=== PATIENT | male | born 1985 | race Caucasian/White ===

== ENCOUNTER 2017-09-29 17:28 | Emergency (ER) | payer BC, OTHER ==
[~2017-09-29] VITALS: Ht 175.3 cm; Wt 92.9 kg
[~2017-09-29 17:28] MED LIST: CITA40TA12 PO
[2017-09-29 17:30] VITALS: BP 146/95; PULSE 96; TEMP 36.9; O2SAT 100; Ht 175.3 cm; Wt 92.9 kg
--- NOTE | 2017-09-29 22:32 | EMERGENCY ROOM VISIT NOTE ---
History Report prepared by Shanel: Sepideh Kwong Under the Supervision of: Dr. Alex Donovan M.D. First contact with patient: 17:35 Chief Complaint: OTHER COMPLAINT Stated Complaint: HERNIA CHECK History of Present Illness The patient is a 31 year old male who presents to the Emergency Room with complaints of a hernia check beginning yesterday. 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 Yesterday, he states he was lifting some heavy boxes and felt some abdominal soreness, so he decided to come to the ED today for a hernia check. He has never had a hernia check before since his repair. He rates his pain as a 5/10 in severity yesterday and a 2/10 in severity today. Pt denies LOC, headache, fevers, chills, diaphoresis, visual changes, neck pain, chest pain, breathing difficulties, nausea, vomiting, back pain, melena, hematochezia, urinary symptoms, numbness, weakness, lymphadenopathy, rash, bulging, or other complaints. Source of History: patient Onset: yesterday Position: abdomen Symptom Intensity: 5/10 in severity yesterday and a 2/10 in severity today Quality: other (hernia check) Timing: other (after lifting heavy boxes yesterday) Associated Symptoms: + abdominal pain (soreness ) Review of Systems See HPI for pertinent positives and negatives. A total of ten systems were reviewed and were otherwise negative. Past Medical & Surgical Medical Problems: (1) Depression (2) Hernia repair Surgical Problems: (1) [place] teeth extracted Family History Hypertension FATHER Social History Smoking Status: Current Every Day Smoker Alcohol Use: heavy Drug Use: marijuana Marital Status: single Housing Status: lives with significant other Occupation Status: employed Current/Historical Medications Unable to Obtain Active Prescriptions or Reported Meds Allergies Coded Allergies: No Known Allergies (Unverified , 12/15/13) Physical Exam Vital Signs Date Time Temp Pulse Resp B/P (MAP) Pulse Ox O2 Delivery O2 Flow Rate FiO2 09/29/17 17:30 36.9 96 20 146/95 100 Room Air Physical Exam GENERAL: Awake, alert, well-appearing, in no distress HENT: Normocephalic, atraumatic. Oropharynx unremarkable. EYES: Normal conjunctiva. Sclera non-icteric. NECK: Supple. No nuchal rigidity. FROM. No masses. RESPIRATORY: Clear to auscultation. No wheezes. No rales. Normal respiratory effort. CARDIAC: Normal rate. Normal rhythm. No murmurs. No rubs. Extremities warm and well perfused. Pulses equal. No JVD. GI: Soft, non-distended. No tenderness to palpation. No rebound or guarding. No masses. : Normal male. Surgical scar on the right inguinal area. No hernia present. No tenderness. No signs of infection MUSCULOSKELETAL: Atraumatic. Chest examination reveals no tenderness. The back is symmetrical on inspection without obvious abnormality. There is no CVA tenderness to palpation. No joint edema. LOWER EXTREMITIES: Calves are equal size bilaterally and non-tender. No edema. No discoloration. NEURO: Normal sensorium. No sensory or motor deficits noted. SKIN: No rash or jaundice noted. Medical Decision & Procedures ED Course 1741: The patient was evaluated in room B11. A complete history and physical exam was performed. 1800: I reevaluated the patient. Discussed results and discharge instructions: He verbalized understanding and agreement. The patient is ready for discharge. Medical Decision The patient presented to the emergency department for evaluation of right groin pain. Etiologies such as hernia, muscle strain, renal colic, appendicitis, diverticulitis, , UTI, as well as others were entertained. He was concerned about possible hernia. The patient underwent physical examination. He was found to have no hernia. He had a benign abdomen. examination is he was doing a lot of lifting. It is possible that he either strained his previous surgery site or the pulled a muscle in the lower abdominal/groin area. He was already feeling a lot better than yesterday and just wanted to be checked out. He did request a work note. I discussed conservative management with him. Warning signs and symptoms were reviewed. The patient felt comfortable with conservative management. By the evaluation outlined above other emergent etiologies such as those listed in the differential, as well as others, were deemed relatively unlikely. The patient was educated about the findings as listed above. All questions were answered and the patient was pleased with the treatment. Return instructions were outlined and the patient was discharged in stable condition. The patient was referred to his PCP for follow-up for a recheck of the current condition. Medication Reconcilliation Current Medication List: was personally reviewed by me Blood Pressure Screening Patient's blood pressure: Elevated blood pressure Blood pressure disposition: Elevated BP felt to be situational Impression Primary Impression: Right groin pain Scribe Attestation The scribe's documentation has been prepared under my direction and personally reviewed by me in its entirety. I confirm that the note above accurately reflects all work, treatment, procedures, and medical decision making performed by me. Departure Information Dispostion Home / Self-Care Prescriptions Unable to Obtain Active Prescriptions or Reported Meds Referrals No Doctor, Assigned (PCP) Forms HOME CARE DOCUMENTATION FORM, IMPORTANT VISIT INFORMATION, WORK / SCHOOL INSTRUCTIONS Patient Instructions My [facility] Additional Instructions Ibuprofen(Motrin, Advil) may be used for fever or pain. Use 600mg every six hours as needed. Take with food. Avoid using more than 2400mg in a 24 hour period. Do not use 2400mg per day for more than three consecutive days without physician direction. Prolonged inappropriate use can lead to stomach upset or ulcers. (AND/OR) Acetaminophen(Tylenol) may be used for fever or pain. Use 1000mg every six hours as needed. Avoid using more than 4000mg in a 24 hour period. Return to the ER immediately for worsening or persistent abdominal pain, vomiting, fevers, chest pains, difficulty breathing, black or bloody stools, worsening of your condition, or as needed. Follow up with a primary physician for a recheck of your current condition.
== END 2017-09-29 18:00 | disposition home or self-care (01) ==
LOC: C.EDB 17:30
DX: R10.30 Lower abdominal pain, unspecified (principal); X50.0XXA Overexertion from strenuous movement or load, initial encounter; R03.0 Elevated blood-pressure reading, without diagnosis of hypertension; Z98.890 Other specified postprocedural states; F17.200 Nicotine dependence, unspecified, uncomplicated

== ENCOUNTER 2020-11-05 14:00 | Inpatient (IN) ==
[2020-11-05] MEDS ORDERED: MULTI-VITAMIN INFUSION 10 ML, THIAMINE HCL 100 MG, FOLIC ACID 1 MG in SODIUM CHLORIDE 0... IV ONE (14:14)
[2020-11-05] MEDS ORDERED: SODIUM CHLORIDE 0.9% 1000ML 1,000 ML IV ONE (14:14)
[2020-11-05] MEDS ORDERED: DEXAMETHASONE SOD INJ 4 MG/ML VIAL IV STA (14:35)
--- NOTE | 2020-11-05 14:50 | XRay Report ---
XR chest 1V portable HISTORY: 34 years-old Male SEPSIS acute sepsis COMPARISON: Chest radiograph 12/01/2014 TECHNIQUE: Portable AP view the chest FINDINGS: Cardiac mediastinal and hilar silhouettes are within normal limits. No pneumothorax, pleural effusion , airspace consolidation or overt pulmonary edema. No acute fracture. IMPRESSION: No acute process. ACT 112: Negative or not required by law. The above report was generated using voice recognition software. It may contain grammatical, syntax o r spelling errors. Electronically signed by: Chriss Hall M.D. 11/05/2020 2:49 PM
[2020-11-05 15:00] LABS: Basophils # (auto) 0.01 K/uL (0-0.2); Basophils % (auto) 0.2 %; Eosinophils # (auto) 0.05 K/uL (0-0.5); Eosinophils % (auto) 1.1 %; Hematocrit (blood only) 49.5 % (42-52); Hemoglobin 16.9 g/dL (14.0-18.0); Immature Granulocytes # (auto) 0.02 K/uL (0.00-0.02); Immature Granulocytes % (auto) 0.4 %; Lymphocytes # (auto) 2.23 K/uL (1.2-3.4); Lymphocytes % (auto) 47.2 %; Mean Corpuscular Hemoglobin 33.1 pg (25-34); Mean Corpuscular Hgb Conc 34.1 g/dL (32-36); Mean Corpuscular Volume 96.9 fL (80-100); Mean Platelet Volume 9.2 fL (7.4-10.4); Monocytes # (auto) 0.32 K/uL (0.11-0.59); Monocytes % (auto) 6.8 %; Neutrophils # (auto) 2.09 K/uL (1.4-6.5); Neutrophils % (auto) 44.3 %; Platelet Count 259 K/uL (130-400); RDW Coefficient of Variation 13.7 % (11.5-14.5); Red Blood Count 5.11 M/uL (4.7-6.1); White Blood Count 4.72 K/uL (4.8-10.8)
[2020-11-05 15:04] LABS: Base Excess VBG -1.9 mEq/L; pH VBG 7.38 (7.36-7.41)
[2020-11-05 15:10] LABS: Alanine Aminotransferase 302 U/L (12-78); Albumin Level 3.7 gm/dl (3.4-5.0); Aspartate Aminotransferase 236 U/L (15-37); BUN Creatinine Ratio 6.5 (10-20); Blood Urea Nitrogen 6 mg/dl (7-18); Calcium 8.4 mg/dl (8.5-10.1); Carbon Dioxide 22 mmol/L (21-32); Chloride 106 mmol/L (98-107); Creatinine Clr Calc Pharmacy 130.2 ml/min; Est GFR (African American) 119.7 ml/min; Est GFR (Non-African American) 103.3 ml/min; Glucose 87 mg/dl (70-99); Lipase 187 U/L (73-393); Magnesium 2.2 mg/dl (1.8-2.4); Potassium 3.7 mmol/L (3.5-5.1); Sodium 141 mmol/L (136-145)
[2020-11-05 15:14] LABS: Albumin Globulin Ratio 0.9 (0.9-2); Alkaline Phosphatase 80 U/L (45-117); Bilirubin,Total 0.3 mg/dl (0.2-1); Globulin 4.4 gm/dl (2.5-4.0); Partial Thromboplastin Ratio 0.9; Partial Thromboplastin Time 23.7 Seconds (21.0-31.0); Prothrombin Time 9.8 Seconds (9.0-12.0); Total Protein 8.1 gm/dl (6.4-8.2); Troponin I < 0.015 ng/ml (0-0.045)
--- NOTE | 2020-11-05 15:14 | Emergency Department Note ---
History of Present Illness General Chief complaint: Alcohol Intoxication Time Seen by Provider: 11/05/20 14:14 History of Present Illness Provider complaint: Alcohol abuse Covid Onset (ago): week(s) 1 34-year-old male with history of drug and alcohol abuse presents emergency department for drug and alcohol abuse. Patient states he tested positive for Covid on October 30, 6 days ago. Since then he has been quarantining at home. The patient states since he has been at home quarantining he has been drinking lots of alcohol because he has not been feeling good. Patient states he blacked out and does not remember what happened. EMS reported that the patient was found in his apartment surrounded by 3 empty bottles of vodka. Home Medications Medication Instructions Recorded Confirmed Type No Known Home Medications 11/05/20 11/05/20 History Allergies Allergy/AdvReac Type Severity Reaction Status Date / Time No Known Allergies Allergy Verified 11/05/20 21:13 Past Med/Surg History Medical History Alcohol intoxication Depression No pertinent family history Surgical History [place] teeth extracted Social History Smoking Status: Current some day smoker Second Hand Exposure: Yes; Do You Dip or Chew Tobacco: Yes; Tobacco Cessation Education Requested by Patient: No Hx Alcohol Use: Yes Alcohol type: hard liquor Hx Substance Use: Yes Non-Prescribed Medications: Heroin Preferred Language: Cypriot Communication Ability: Effective Charger Operator Required: Yes Beliefs That Will Affect Care: None Current Living Situation: Spouse Other Information That Helps Us Care for You: No Feels Safe at Home: Yes Assistive Devices: None Review of Systems A total of 10 systems reviewed and were otherwise negative Physical Exam Vital Signs Vital Signs - 24 hr 11/05/20 14:05 11/05/20 14:10 11/05/20 14:33 Temperature 36.4 C L Temperature Source Oral Pulse Rate 127 H 134 H Pulse Rate from SpO2 Sensor 125 H 134 H Pulse Rhythm Regular Pulse Strength Normal Respiratory Rate 13 17 Respiratory Effort / Characteristics Non-Labored Spontaneous Respiratory Depth Normal Respiratory Pattern Regular Blood Pressure 146/118 H Blood Pressure Mean 127 Blood Pressure Position Sitting Pulse Oximetry 93 87 L 97 Oxygen Delivery Method Room Air Nasal Cannula Oxygen Flow Rate 0 Sepsis Recent Fever Within 48 Hours No Sepsis New/Unexplained Change in Mental Status No Sepsis Action Taken by Nursing No Action Required Oxygen Flow Rate - Titration 2 Pulse Oximetry Post Tiitration 96 11/05/20 14:40 11/05/20 14:44 11/05/20 14:50 Temperature Temperature Source Pulse Rate 121 H 118 H Pulse Rate from SpO2 Sensor 121 H 118 H Pulse Rhythm Pulse Strength Respiratory Rate 17 25 H Respiratory Effort / Characteristics Non-Labored Spontaneous Respiratory Depth Respiratory Pattern Blood Pressure Blood Pressure Mean Blood Pressure Position Pulse Oximetry 96 96 95 Oxygen Delivery Method Nasal Cannula Oxygen Flow Rate 2 Sepsis Recent Fever Within 48 Hours Sepsis New/Unexplained Change in Mental Status Sepsis Action Taken by Nursing Oxygen Flow Rate - Titration Pulse Oximetry Post Tiitration 11/05/20 15:00 11/05/20 15:14 11/05/20 15:30 Temperature Temperature Source Pulse Rate 114 H 110 H Pulse Rate from SpO2 Sensor 114 H 110 H Pulse Rhythm Pulse Strength Respiratory Rate 24 21 Respiratory Effort / Characteristics Respiratory Depth Respiratory Pattern Blood Pressure 147/101 H 141/93 H Blood Pressure Mean 116 109 Blood Pressure Position Pulse Oximetry 96 95 99 Oxygen Delivery Method Room Air Nasal Cannula Oxygen Flow Rate 2 Sepsis Recent Fever Within 48 Hours Sepsis New/Unexplained Change in Mental Status Sepsis Action Taken by Nursing Oxygen Flow Rate - Titration Pulse Oximetry Post Tiitration 11/05/20 16:01 11/05/20 16:30 11/05/20 16:31 Temperature Temperature Source Pulse Rate 109 H Pulse Rate from SpO2 Sensor 109 H 119 H Pulse Rhythm Pulse Strength Respiratory Rate 23 Respiratory Effort / Characteristics Respiratory Depth Respiratory Pattern Blood Pressure 143/92 H 132/91 Blood Pressure Mean 109 104 Blood Pressure Position Pulse Oximetry 95 99 98 Oxygen Delivery Method Nasal Cannula Nasal Cannula Oxygen Flow Rate 2 2 Sepsis Recent Fever Within 48 Hours Sepsis New/Unexplained Change in Mental Status Sepsis Action Taken by Nursing Oxygen Flow Rate - Titration Pulse Oximetry Post Tiitration Physical Exam GENERAL: Patient is disheveled and smells of alcohol. HENT: Exam performed. - Head: Normocephalic and atraumatic. - Right Ear: External ear normal. No mastoid tenderness. - Left Ear: External ear normal. No mastoid tenderness. - Mouth/Throat: The oropharynx is clear and moist. No trismus in the jaw. No dental abscesses or uvula swelling. No oropharyngeal exudate or tonsillar abscesses. EYES: Conjunctivae and EOM are normal. Pupils are equal, round, and reactive to light. Right eye exhibits no discharge. Left eye exhibits no discharge. No scleral icterus. NECK: Normal range of motion. Neck supple. No JVD present. No spinous process tenderness present. No carotid bruit present. No rigidity. No tracheal deviation and normal range of motion present. No Brudzinski's sign and no Kernig's sign noted. CV: Tachycardic rate, regular rhythm, normal heart sounds and intact distal pulses. There is no peripheral edema. Palpable radial pulses bue. PULM/CHEST: Rhonchi bilaterally. - Chest Wall: He exhibits no tenderness. ABD: The abdomen is soft. Bowel sounds are normal. He has no distension. No mass is present. There is no tenderness. There is no rebound, no guarding, no Broderick's sign and no tenderness at McBurney's point. Rovsig negative. MUSC/SKEL: Normal range of motion. There is no peripheral edema, tenderness or deformity. LYMPH: No cervical adenopathy. NEURO: He is alert and oriented to person, place, and time. He has normal strength. No cranial nerve deficit or sensory deficit. GCS eye subscore is 4. GCS verbal subscore is 4. GCS motor subscore is 6. Cerebellar tests wnl. SKIN: Skin is warm and dry. He is not diaphoretic. PSYCH: Patient reports no suicidal ideation. Course Course 1414: The patient was evaluated in room B10. A complete history and physical exam was performed Cardiac monitoring: An order was placed for continuous cardiac monitoring. The monitor shows a rate of 120 with sinus tachycardia rhythm Patient is disheveled and smells of alcohol. Patient is responsive but is easily falling asleep. Patient's oxygen saturation was 87% on room air. Patient placed on 2 L nasal cannula. Is unclear if the patient's low oxygen saturation is due to his Covid or due to him being intoxicated and having bradychpnea. Patient is given Decadron 6 mg IV push in case it is Covid. 1645: Vital signs stable. Labs show lactic acid greater than 4. She would like to leave A. I explained to him that he has Covid pneumonia and his oxygen saturations were low requiring supplemental oxygen and Decadron. Patient is in agreement to stay. Imaging negative for PE. [facility]00: Patient is again stating that he would like to leave AMA. Patient ripped out his IV and all of his monitors. Explained to him that I would not allow him to leave AMA as he is clinically intoxicated and his serum EtOH is greater than 300. Patient states his girlfriend is on her way to sign him out AMA. 1810: Girlfriend at bedside. Patient block on supplemental oxygen. Girlfriend states that she wants the patient to stay inpatient and refuses to sign him out AMA and convince the patient to be admitted to the hospital. Patient is now in agreement to be admitted. Administered Medications Folic Acid (Folic Acid 1 Mg Tab) 1 mg PO QAM TRESSA Stop: 12/05/20 21:42 Last Admin: 11/05/20 22:12 Dose: 1 mg Documented by: [id number] Potassium Chloride/Dextrose/Sod Cl (D5w And 1/2nss + 20meq Kcl) 20 meq in 1,000 mls @ 100 mls/hr IV .Q10H TRESSA Stop: 12/05/20 21:59 Last Admin: 11/05/20 22:13 Dose: 100 mls/hr Documented by: [id number] Thiamine HCl (Thiamine Hcl 100 Mg Tab) 100 mg PO QAM TRESSA Stop: 12/05/20 21:42 Last Admin: 11/05/20 22:11 Dose: 100 mg Documented by: [id number] Discontinued Medications Dexamethasone (Dexamethasone Sod Inj 4 Mg/Ml Vial) 6 mg IV NOW STA Stop: 11/05/20 14:36 Last Admin: 11/05/20 14:49 Dose: 6 mg Documented by: [id number] Sodium Chloride (Nss 1000ml) 1,000 mls @ 999 mls/hr IV .Q1H1M ONE Stop: 11/05/20 15:14 Last Infusion: 11/05/20 16:14 Dose: 0 mls/hr Documented by: [id number] Admin: 11/05/20 14:50 Dose: 999 mls/hr Documented by: [id number] Multivitamins 10 ml/ Thiamine HCl 100 mg/ Folic Acid 1 mg/Sodium Chloride 1,011.2 mls @ 1,011.2 mls/hr IV .Q1H ONE Stop: 11/05/20 15:13 Last Infusion: 11/05/20 16:14 Dose: 0 mls/hr Documented by: [id number] Admin: 11/05/20 14:50 Dose: 1,011.2 mls/hr Documented by: [id number] Ioversol (Optiray 320 125ml) 120 ml IV ONCE ONE Stop: 11/05/20 15:33 Last Admin: 11/05/20 15:33 Dose: 120 ml Documented by: [id number] Critical Care Time Critical Care Time: Yes Total Critical Care Time: 35 I have personally spent greater than 35 minutes of critical care time in the direct management of this patient. This includes bedside care, interpretation of diagnostic studies, and testing, discussion with consultants, patient, and family members, and other required patient management activities. This 35 minutes is in excess of all separately billable procedures. Medical Decision Making Laboratory Data Result diagrams: 11/05/20 14:35 11/05/20 14:35 Lab Results 11/05/20 11/05/20 11/05/20 Range/Units 14:35 14:35 14:35 WBC 4.72 L (4.8-10.8) K/uL RBC 5.11 (4.7-6.1) M/uL Hgb 16.9 (14.0-18.0) g/dL Hct 49.5 (42-52) % MCV 96.9 (80-100) fL MCH 33.1 (25-34) pg MCHC 34.1 (32-36) g/dL RDW Std Deviation 49.0 H (36.4-46.3) fL RDW Coeff of Bethany 13.7 (11.5-14.5) % Plt Count 259 (130-400) K/uL MPV 9.2 (7.4-10.4) fL Immature Gran % (Auto) 0.4 % Neut % (Auto) 44.3 % Lymph % (Auto) 47.2 % Towner % (Auto) 6.8 % Eos % (Auto) 1.1 % Baso % (Auto) 0.2 % Neut # (Auto) 2.09 (1.4-6.5) K/uL Lymph # (Auto) 2.23 (1.2-3.4) K/uL Towner # (Auto) 0.32 (0.11-0.59) K/uL Eos # (Auto) 0.05 (0-0.5) K/uL Baso # (Auto) 0.01 (0-0.2) K/uL Immature Gran # (Auto) 0.02 (0.00-0.02) K/uL PT 9.8 (9.0-12.0) Seconds INR 1.0 (0.9-1.1) APTT 23.7 (21.0-31.0) Seconds PTT Ratio 0.9 VBG pH (7.36-7.41) VBG pCO2 (38-50) mmHg VBG pO2 mmHg VBG HCO3 mmol/L VBG O2 Saturation % VBG Base Excess mEq/L Barometric Pressure mm/Hg Sodium 141 (136-145) mmol/L Potassium 3.7 (3.5-5.1) mmol/L Chloride 106 (98-107) mmol/L Carbon Dioxide 22 (21-32) mmol/L Anion Gap 14.0 H (3-11) BUN 6 L (7-18) mg/dl Creatinine 0.95 (0.6-1.4) mg/dl Est Cr Clr Drug Dosing 130.2 ml/min Est GFR ( Amer) 119.7 ml/min Est GFR (Non-Af Amer) 103.3 ml/min BUN/Creatinine Ratio 6.5 L (10-20) Glucose 87 (70-99) mg/dl Lactate (0.4-2.0) mmol/L Calcium 8.4 L (8.5-10.1) mg/dl Magnesium 2.2 (1.8-2.4) mg/dl Total Bilirubin 0.3 (0.2-1) mg/dl AST 236 H (15-37) U/L ALT 302 H (12-78) U/L Alkaline Phosphatase 80 (45-117) U/L Troponin I < 0.015 (0-0.045) ng/ml C-Reactive Protein < 0.29 (0-0.29) mg/dl Total Protein 8.1 (6.4-8.2) gm/dl Albumin 3.7 (3.4-5.0) gm/dl Globulin 4.4 H (2.5-4.0) gm/dl Albumin/Globulin Ratio 0.9 (0.9-2) Lipase 187 (73-393) U/L Procalcitonin (0-0.5) ng/ml Salicylates (2.8-20) mg/dl Acetaminophen (10-30) ug/ml Ethyl Alcohol mg/dL (0-3) mg/dl COVID-19 Eval Order SARS-CoV-2 (PCR) (Negative) 11/05/20 11/05/20 11/05/20 Range/Units 14:35 14:35 14:35 WBC (4.8-10.8) K/uL RBC (4.7-6.1) M/uL Hgb (14.0-18.0) g/dL Hct (42-52) % MCV (80-100) fL MCH (25-34) pg MCHC (32-36) g/dL RDW Std Deviation (36.4-46.3) fL RDW Coeff of Bethany (11.5-14.5) % Plt Count (130-400) K/uL MPV (7.4-10.4) fL Immature Gran % (Auto) % Neut % (Auto) % Lymph % (Auto) % Towner % (Auto) % Eos % (Auto) % Baso % (Auto) % Neut # (Auto) (1.4-6.5) K/uL Lymph # (Auto) (1.2-3.4) K/uL Towner # (Auto) (0.11-0.59) K/uL Eos # (Auto) (0-0.5) K/uL Baso # (Auto) (0-0.2) K/uL Immature Gran # (Auto) (0.00-0.02) K/uL PT (9.0-12.0) Seconds INR (0.9-1.1) APTT (21.0-31.0) Seconds PTT Ratio VBG pH (7.36-7.41) VBG pCO2 (38-50) mmHg VBG pO2 mmHg VBG HCO3 mmol/L VBG O2 Saturation % VBG Base Excess mEq/L Barometric Pressure mm/Hg Sodium (136-145) mmol/L Potassium (3.5-5.1) mmol/L Chloride (98-107) mmol/L Carbon Dioxide (21-32) mmol/L Anion Gap (3-11) BUN (7-18) mg/dl Creatinine (0.6-1.4) mg/dl Est Cr Clr Drug Dosing ml/min Est GFR ( Amer) ml/min Est GFR (Non-Af Amer) ml/min BUN/Creatinine Ratio (10-20) Glucose (70-99) mg/dl Lactate 4.2 H* (0.4-2.0) mmol/L Calcium (8.5-10.1) mg/dl Magnesium (1.8-2.4) mg/dl Total Bilirubin (0.2-1) mg/dl AST (15-37) U/L ALT (12-78) U/L Alkaline Phosphatase (45-117) U/L Troponin I (0-0.045) ng/ml C-Reactive Protein (0-0.29) mg/dl Total Protein (6.4-8.2) gm/dl Albumin (3.4-5.0) gm/dl Globulin (2.5-4.0) gm/dl Albumin/Globulin Ratio (0.9-2) Lipase (73-393) U/L Procalcitonin < 0.05 (0-0.5) ng/ml Salicylates < 1.7 L (2.8-20) mg/dl Acetaminophen < 2 L (10-30) ug/ml Ethyl Alcohol mg/dL (0-3) mg/dl COVID-19 Eval Order SARS-CoV-2 (PCR) (Negative) 11/05/20 11/05/20 11/05/20 Range/Units 14:35 14:35 14:44 WBC (4.8-10.8) K/uL RBC (4.7-6.1) M/uL Hgb (14.0-18.0) g/dL Hct (42-52) % MCV (80-100) fL MCH (25-34) pg MCHC (32-36) g/dL RDW Std Deviation (36.4-46.3) fL RDW Coeff of Bethany (11.5-14.5) % Plt Count (130-400) K/uL MPV (7.4-10.4) fL Immature Gran % (Auto) % Neut % (Auto) % Lymph % (Auto) % Towner % (Auto) % Eos % (Auto) % Baso % (Auto) % Neut # (Auto) (1.4-6.5) K/uL Lymph # (Auto) (1.2-3.4) K/uL Towner # (Auto) (0.11-0.59) K/uL Eos # (Auto) (0-0.5) K/uL Baso # (Auto) (0-0.2) K/uL Immature Gran # (Auto) (0.00-0.02) K/uL PT (9.0-12.0) Seconds INR (0.9-1.1) APTT (21.0-31.0) Seconds PTT Ratio VBG pH (7.36-7.41) VBG pCO2 (38-50) mmHg VBG pO2 mmHg VBG HCO3 mmol/L VBG O2 Saturation % VBG Base Excess mEq/L Barometric Pressure mm/Hg Sodium (136-145) mmol/L Potassium (3.5-5.1) mmol/L Chloride (98-107) mmol/L Carbon Dioxide (21-32) mmol/L Anion Gap (3-11) BUN (7-18) mg/dl Creatinine (0.6-1.4) mg/dl Est Cr Clr Drug Dosing ml/min Est GFR ( Amer) ml/min Est GFR (Non-Af Amer) ml/min BUN/Creatinine Ratio (10-20) Glucose (70-99) mg/dl Lactate (0.4-2.0) mmol/L Calcium (8.5-10.1) mg/dl Magnesium (1.8-2.4) mg/dl Total Bilirubin (0.2-1) mg/dl AST (15-37) U/L ALT (12-78) U/L Alkaline Phosphatase (45-117) U/L Troponin I (0-0.045) ng/ml C-Reactive Protein (0-0.29) mg/dl Total Protein (6.4-8.2) gm/dl Albumin (3.4-5.0) gm/dl Globulin (2.5-4.0) gm/dl Albumin/Globulin Ratio (0.9-2) Lipase (73-393) U/L Procalcitonin (0-0.5) ng/ml Salicylates (2.8-20) mg/dl Acetaminophen (10-30) ug/ml Ethyl Alcohol mg/dL 377.0 H (0-3) mg/dl COVID-19 Eval Order Covid19 at [facility] SARS-CoV-2 (PCR) POSITIVE A* (Negative) 11/05/20 11/05/20 Range/Units 14:44 17:00 WBC (4.8-10.8) K/uL RBC (4.7-6.1) M/uL Hgb (14.0-18.0) g/dL Hct (42-52) % MCV (80-100) fL MCH (25-34) pg MCHC (32-36) g/dL RDW Std Deviation (36.4-46.3) fL RDW Coeff of Bethany (11.5-14.5) % Plt Count (130-400) K/uL MPV (7.4-10.4) fL Immature Gran % (Auto) % Neut % (Auto) % Lymph % (Auto) % Towner % (Auto) % Eos % (Auto) % Baso % (Auto) % Neut # (Auto) (1.4-6.5) K/uL Lymph # (Auto) (1.2-3.4) K/uL Towner # (Auto) (0.11-0.59) K/uL Eos # (Auto) (0-0.5) K/uL Baso # (Auto) (0-0.2) K/uL Immature Gran # (Auto) (0.00-0.02) K/uL PT (9.0-12.0) Seconds INR (0.9-1.1) APTT (21.0-31.0) Seconds PTT Ratio VBG pH 7.38 (7.36-7.41) VBG pCO2 40 (38-50) mmHg VBG pO2 56 mmHg VBG HCO3 23 mmol/L VBG O2 Saturation 86.0 % VBG Base Excess -1.9 mEq/L Barometric Pressure 728.9 mm/Hg Sodium (136-145) mmol/L Potassium (3.5-5.1) mmol/L Chloride (98-107) mmol/L Carbon Dioxide (21-32) mmol/L Anion Gap (3-11) BUN (7-18) mg/dl Creatinine (0.6-1.4) mg/dl Est Cr Clr Drug Dosing ml/min Est GFR ( Amer) ml/min Est GFR (Non-Af Amer) ml/min BUN/Creatinine Ratio (10-20) Glucose (70-99) mg/dl Lactate 4.3 H* (0.4-2.0) mmol/L Calcium (8.5-10.1) mg/dl Magnesium (1.8-2.4) mg/dl Total Bilirubin (0.2-1) mg/dl AST (15-37) U/L ALT (12-78) U/L Alkaline Phosphatase (45-117) U/L Troponin I (0-0.045) ng/ml C-Reactive Protein (0-0.29) mg/dl Total Protein (6.4-8.2) gm/dl Albumin (3.4-5.0) gm/dl Globulin (2.5-4.0) gm/dl Albumin/Globulin Ratio (0.9-2) Lipase (73-393) U/L Procalcitonin (0-0.5) ng/ml Salicylates (2.8-20) mg/dl Acetaminophen (10-30) ug/ml Ethyl Alcohol mg/dL (0-3) mg/dl COVID-19 Eval Order SARS-CoV-2 (PCR) (Negative) Imaging Data Radiologist's Impression: Chest X-Ray 11/05/20 14:14 XR chest 1V portable HISTORY: 34 years-old Male SEPSIS acute sepsis COMPARISON: Chest radiograph 12/01/2014 TECHNIQUE: Portable AP view the chest FINDINGS: Cardiac mediastinal and hilar silhouettes are within normal limits. No pneumothorax, pleural effusion, airspace consolidation or overt pulmonary edema. No acute fracture. IMPRESSION: No acute process. ACT 112: Negative or not required by law. The above report was generated using voice recognition software. It may contain grammatical, syntax or spelling errors. Electronically signed by: Chriss Hall M.D. 11/05/2020 2:[address] 11/05/20 15:16 CT cervical spine wo con CLINICAL HISTORY: 34 years-old Male with etoh found down covid. Acute posttraumatic neck injury COMPARISON: Head CT of same day, CT cervical spine 08/18/2012 TECHNIQUE: Multiple axial CT images of the cervical spine were obtained without contrast. A dose lowering technique was utilized adhering to the principles of ALARA. FINDINGS: Vertebral body heights and alignment are normal. No fracture or subluxation is identified. The intervertebral disc spaces are preserved. Mild multilevel facet arthrosis. Mild uncovertebral spurring at C3-C4. Mild superior endplate compression deformity of the C6 and C7 segments is new/progressed from comparison. No acute fracture line identified. No significant central canal or n eural foraminal stenosis is identified. The cervical soft tissues appear unremarkable. The visualized lung apices appear clear. IMPRESSION: 1. No definite acute fracture or subluxation identified. 2. Minimal superior endplate compression of the C6 and C7 vertebral segments is new/progressed from the 2013 comparison and may represent age-indeterminate fractures versus degenerative change. No associated prevertebral edema identified. Correlate with point tenderness. 3. Mild multilevel facet arthrosis. ACT 112: Negative or not required by law. The above report was generated using voice recognition software. It may contain grammatical, syntax or spelling errors. Electronically signed by: Chriss Hall M.D. 11/05/2020 4:01 PM Chest CTA 11/05/20 15:16 CHEST CTA for PULMONARY ARTERIES CT DOSE: 501.24 mGycm HISTORY: etoh found down covid TECHNIQUE: Multiaxial CT images of the chest were performed following the intravenous administration of contrast to evaluate the pulmonary arteries. Maximal intensity projection images were also obtained. A dose lowering techn ique was utilized adhering to the principles of ALARA. COMPARISON STUDY: None. FINDINGS: Severe hepatic steatosis. Mild thickening within the distal esophagus. No pleural or pericardial effusions. The heart is normal in size. No mediastinal or hilar lymphadenopathy. Normal caliber thoracic aorta with no evidence for a dissection. No filling defects within the pulmonary arteries to suggest a pulmonary embolus. No pneumothorax. The central airways are patent. A few scattered small groundglass airspace opacities consistent with a mild viral pneu monia. IMPRESSION: 1. No evidence for pulmonary embolus. 2. A few scattered small groundglass airspace opacities within the lungs consi stent with a mild viral pneumonia. 3. Severe hepatic steatosis. 4. Mild circumferential thickening of the distal esophagus. ACT 112: Negative or not required by law. Electronically signed by: Myron Mark M.D. 11/05/2020 4:[address] 11/05/20 15:[address] DOSE: 1700.96 mGycm HISTORY: etoh found down covid TECHNIQUE: Multiaxial CT images of the head were performed without the use of intravenous contrast. Automated exposure control was utilized for this study. A dose lowering technique was utilized adhering to the principles of ALARA. Comparison: Head CT 08/18/2012. Findings: The paranasal sinuses and mastoid air cells are clear. The calvarium and skull base are intact. The ventricles and sulci are within normal limits. There is no mass, hematoma, midline shift, or acute infarct. Impression: No acute intracranial abnormality. ACT 112: Negative or not required by law. Electronically signed by: Myron Mark M.D. 11/05/2020 3:57 PM ECG Data Indication: + toxicologic Rate (beats per minute): 115 Rhythm: + sinus tachycardia ECG Intervals/blocks: + Normal QRS, + Normal ND and + Normal QT-c ECG ST segments: + Normal ST segments [facility] Narrative 1414: The patient was evaluated in room B10. A complete history and physical exam was performed Cardiac monitoring: An order was placed for continuous cardiac monitoring. The monitor shows a rate of 120 with sinus tachycardia rhythm Patient is disheveled and smells of alcohol. Patient is responsive but is easily falling asleep. Patient's oxygen saturation was 87% on room air. Patient placed on 2 L nasal cannula. Is unclear if the patient's low oxygen saturation is due to his Covid or due to him being intoxicated and having bradychpnea. Patient is given Decadron 6 mg IV push in case it is Covid. 1645: Vital signs stable. Labs show lactic acid greater than 4. She would like to leave AMA. I explained to him that he has Covid pneumonia and his oxygen saturations were low requiring supplemental oxygen and Decadron. Patient is in agreement to stay. Imaging negative for PE. [facility] 1700: Patient is again stating that he would like to leave AMA. Patient ripped out his IV and all of his monitors. Explained to him that I would not allow him to leave AMA as he is clinically intoxicated and his serum EtOH is greater than 300. Patient states his girlfriend is on her way to sign him out AMA. 1810: Girlfriend at bedside. Patient block on supplemental oxygen. Girlfriend states that she wants the patient to stay inpatient and refuses to sign him out AMA and convince the patient to be admitted to the hospital. Patient is now in agreement to be admitted. Impression & Plan Hypoxia, Pneumonia due to COVID-19 virus, Alcohol intoxication Discharge Plan Visit Data Chief Complaint: Alcohol Intoxication ED Provider: Ventura Conrad Discharge Problem: Hypoxia, Pneumonia due to COVID-19 virus, Alcohol intoxication Patient Disposition: Admitted As Inpatient Discharge Instructions Interventions: ED Discharge Assessment Last Done: 11/05/20 21:03
[2020-11-05 15:31] LABS: Acetaminophen < 2 ug/ml (10-30); Salicylate < 1.7 mg/dl (2.8-20)
[2020-11-05] MEDS ORDERED: OPTIRAY 320 125ml IV ONE (15:32)
--- NOTE | 2020-11-05 15:59 | CT Scan Report ---
HEAD CT NONCONTRAST CT DOSE: 1700.96 mGycm HISTORY: etoh found down covid TECHNIQUE: Multiaxial CT images of the head were performed without the use of intravenous contrast. A utomated exposure control was utilized for this study. A dose lowering technique was utilized adheri ng to the principles of ALARA. Comparison: Head CT 08/18/2012. Findings: The paranasal sinuses and mastoid air cells are clear. The calvarium and skull base are int act. The ventricles and sulci are within normal limits. There is no mass, hematoma, midline shift, or acute infarct. Impression: No acute intracranial abnormality. ACT 112: Negative or not required by law. Electronically signed by: Myron Mrak M.D. 11/05/2020 3:57 PM
--- NOTE | 2020-11-05 16:03 | CT Scan Report ---
CT cervical spine wo con CLINICAL HISTORY: 34 years-old Male with etoh found down covid. Acute posttraumatic neck injury COMPARISON: Head CT of same day, CT cervical spine 08/18/2012 TECHNIQUE: Multiple axial CT images of the cervical spine were obtained without contrast. A dose low ering technique was utilized adhering to the principles of ALARA. FINDINGS: Vertebral body heights and alignment are normal. No fracture or subluxation is identified. The intervertebral disc spaces are preserved. Mild multilevel facet arthrosis. Mild uncovertebral s purring at C3-C4. Mild superior endplate compression deformity of the C6 and C7 segments is new/progr essed from comparison. No acute fracture line identified. No significant central canal or neural fora haley stenosis is identified. The cervical soft tissues appear unremarkable. The visualized lung apices appear clear. IMPRESSION: 1. No definite acute fracture or subluxation identified. 2. Minimal superior endplate compression of the C6 and C7 vertebral segments is new/progressed from 2012 comparison and may represent age-indeterminate fractures versus degenerative change. No assoc iated prevertebral edema identified. Correlate with point tenderness. 3. Mild multilevel facet arthrosis. ACT 112: Negative or not required by law. The above report was generated using voice recognition software. It may contain grammatical, syntax o r spelling errors. Electronically signed by: Chriss Hall M.D. 11/05/2020 4:01 PM
--- NOTE | 2020-11-05 16:04 | CT Scan Report ---
CHEST CTA for PULMONARY ARTERIES CT DOSE: 501.24 mGycm HISTORY: etoh found down covid TECHNIQUE: Multiaxial CT images of the chest were performed following the intravenous administration of contrast to evaluate the pulmonary arteries. Maximal intensity projection images were also obtaine d. A dose lowering technique was utilized adhering to the principles of ALARA. COMPARISON STUDY: None. FINDINGS: Severe hepatic steatosis. Mild thickening within the distal esophagus. No pleural or perica rdial effusions. The heart is normal in size. No mediastinal or hilar lymphadenopathy. Normal caliber thoracic aorta with no evidence for a dissection. No filling defects within the pulmonary arteries t o suggest a pulmonary embolus. No pneumothorax. The central airways are patent. A few scattered small groundglass airspace opacities consistent with a mild viral pneumonia. IMPRESSION: 1. No evidence for pulmonary embolus. 2. A few scattered small groundglass airspace opacities within the lungs consistent with a mild viral pneumonia. 3. Severe hepatic steatosis. 4. Mild circumferential thickening of the distal esophagus. ACT 112: Negative or not required by law. Electronically signed by: Myron Mark M.D. 11/05/2020 4:03 PM
--- NOTE | 2020-11-05 17:15 | History & Physical Report ---
Date of Service November 05, 2020 Assessment & Plan (1) Pneumonia due to COVID-19 virus: Plan: Maintaining O2 sats while awake. Dexamethasone 6mg IV given in ER due to O2 sats 87% on room air while asleep. Will defer further dexamethasone as patient is clinically improving, no hypoxia on room air at rest while awake and CRP negative. (2) Lactic acidosis: Plan: Elevated lactate without acidemia. Suspect from alcohol use and reduced lactate elimination. Sepsis not suspected. Should resolve with alcohol cessation and IV fluids (although will not be overly agressive with this due to COVID diagnosis). (3) Alcohol intoxication: Plan: Monitor for alcohol withdrawal. AWSS. Ativan 1mg IV PRN for scores 6-10. Mild prior symptoms. (4) Altered mental status: Plan: Given high alcohol level although this is the main reason for his presentation he appears to be mentating well at the current time. (5) Transaminitis: Plan: Suspect combination of COVID-19 and most likely alcohol intake. Hepatic steotosis on CT. Recommend abstinence from alcohol and PCP follow up. Plan: VTE Prophylaxis - lovenox 40mg SQ QAM Diet - regular Disposition - admit to med/surg Admission and Anticipated Discharge Date Admission Date: November 05, 2020 History of Present Illness Chief Complaint: COVID-19 symptoms Primary Care Provider: NO PCP Chino Sanches is a 34 year old male with alcoholism who presents to the ER after his girlfriend called the ambulance due to the patient losing consciousness. He has known COVID-19 pneumonia. He is not vaccinated. Currently on day 9 of illness. He feels he is getting better from a COVID stand point however. Mainly now just has generalized myalgias, non-productive cough, fat igue, diarrhea, loss of taste and smell with reduced appetite. He is no longer having fever, chills or significant shortness of breath at rest. However he has known alcohol use disorder but had been having significant periods of abstention but drank 1.5 bottles of vodka yesterday up until around 5 hours ago (notably EMS found 3 empty bottles of vodka. His girlfriend couldn't wake him up therefore called for an ambulance today. He reports going back to drinking after abstaining for the last 4 weeks prior to this. He went back to drinking to numb the effects of COVID. 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 In the ER he was noted to be mildly hypoxic when sleeping therefore was given dexamethasone 6mg IV and referred to medicine for ongoing management for COVID- 19 pneumonia and hypoxia. Lactic acid was 4.2, AST 236, ALT 302. He tried to sign out against medical advice on multiple occasions however his girlfriend is unwilling to give him a lift home at the current time therefore is now willing to stay. Allergies Allergy/AdvReac Type Severity Reaction Status Date / Time No Known Allergies Allergy Verified 11/05/20 21:13 Home Medications Medication Instructions Recorded Confirmed Type No Known Home Medications 11/05/20 11/05/20 History Past Med/Surg History Medical History Alcohol intoxication Depression No pertinent family history Surgical History Sargeant teeth extracted Social History Smoking Status: Current some day smoker Second Hand Exposure: Yes; Do You Dip or Chew Tobacco: Yes; Tobacco Cessation Education Requested by Patient: No Hx Alcohol Use: Yes Alcohol type: hard liquor Hx Substance Use: Yes Non-Prescribed Medications: Heroin Preferred Language: Irish Communication Ability: Effective Fur Cleaner Required: Yes Beliefs That Will Affect Care: None Current Living Situation: Spouse Other Information That Helps Us Care for You: No Feels Safe at Home: Yes Assistive Devices: Oxygen - Continuous Review of Systems Review of Systems: All systems reviewed & are unremarkable except as noted in HPI & below Physical Exam Constitutional: WD/WN, vitals as above Eyes: PERRL, conjunctivae normal, anicteric sclerae ENMT: external ear and nose normal, oropharynx normal Neck: trachea midline, no thyromegaly Respiratory: normal respiratory effort; no respiratory distress Auscultation: + crackles (fine posteriorly); no diminished lung sounds, no rales and no wheezes Cardiovascular: RRR, no murmur, no edema Gastrointestinal (Abdomen): normal bowel sounds, soft, nontender, no hepatosplenomegaly Musculoskeletal: no cyanosis or clubbing, extremities motor strength 5/5 Skin: no rashes, warm and dry Neurologic: moves all extremities and awake; no focal motor deficits and not confused Speech / Cognition: normal speech Cranial Nerves: PERRL Psychiatric: A+Ox3, euthymic affect Results & Data Results & Data ([facility]) Vital Signs (Past 12 Hours) Vital Signs Temp Pulse Resp BP Pulse Ox 11/05/20 16:31 98 11/05/20 16:30 132/91 99 11/05/20 16:01 109 H 23 143/92 H 95 11/05/20 15:30 110 H 21 141/93 H 99 11/05/20 15:14 95 11/05/20 15:00 114 H 24 147/101 H 96 11/05/20 14:50 118 H 25 H 95 11/05/20 14:40 121 H 17 96 11/05/20 14:33 134 H 17 97 11/05/20 14:10 87 L 11/05/20 14:05 36.4 C L 127 H 13 146/118 H [address] NONCONTRAST CT DOSE: 1700.96 mGycm HISTORY: etoh found down covid TECHNIQUE: Multiaxial CT images of the head were performed without the use of intravenous contrast. Automated exposure control was utilized for this study. A dose lowering technique was utilized adhering to the principles of ALARA. Comparison: Head CT 08/18/2012. Findings: The paranasal sinuses and mastoid air cells are clear. The calvarium and skull base are intact. The ventricles and sulci are within normal limits. There is no mass, hematoma, midline shift, or acute infarct. Impression: No acute intracranial abnormality. CT cervical spine wo con CLINICAL HISTORY: 34 years-old Male with etoh found down covid. Acute posttraumatic neck injury COMPARISON: Head CT of same day, CT cervical spine 08/18/2012 TECHNIQUE: Multiple axial CT images of the cervical spine were obtained without contrast. A dose lowering technique was utilized adhering to the principles of ALARA. FINDINGS: Vertebral body heights and alignment are normal. No fracture or subluxation is identified. The intervertebral disc spaces are preserved. Mild multilevel facet arthrosis. Mild uncovertebral spurring at C3-C4. Mild superior endplate compression deformity of the C6 and C7 segments is new/progressed from comparison. No acute fracture line identified. No significant central canal or neural foraminal stenosis is identified. The cervical soft tissues appear unremarkable. The visualized lung apices appear clear. IMPRESSION: 1. No definite acute fracture or subluxation identified. 2. Minimal superior endplate compression of the C6 and C7 vertebral segments is new/progressed from the 2013 comparison and may represent age-indeterminate fractures versus degenerative change. No associated prevertebral edema identified. Correlate with point tenderness. 3. Mild multilevel facet arthrosis. CHEST CTA for PULMONARY ARTERIES CT DOSE: 501.24 mGycm HISTORY: etoh found down covid TECHNIQUE: Multiaxial CT images of the chest were performed following the intravenous administration of contrast to evaluate the pulmonary arteries. Maximal intensity projection images were also obtained. A dose lowering technique was utilized adhering to the principles of ALARA. COMPARISON STUDY: None. FINDINGS: Severe hepatic steatosis. Mild thickening within the distal esophagus. No pleural or pericardial effusions. The heart is normal in size. No mediastinal or hilar lymphadenopathy. Normal caliber thoracic aorta with no evidence for a dissection. No filling defects within the pulmonary arteries to suggest a pulmonary embolus. No pneumothorax. The central airways are patent. A few scattered small groundglass airspace opacities consistent with a mild viral pneumonia. IMPRESSION: 1. No evidence for pulmonary embolus. 2. A few scattered small groundglass airspace opacities within the lungs consistent with a mild viral pneumonia. 3. Severe hepatic steatosis. 4. Mild circumferential thickening of the distal esophagus. XR chest 1V portable HISTORY: 34 years-old Male SEPSIS acute sepsis COMPARISON: Chest radiograph 12/01/2014 TECHNIQUE: Portable AP view the chest FINDINGS: Cardiac mediastinal and hilar silhouettes are within normal limits. No pneumothorax, pleural effusion, airspace consolidation or overt pulmonary edema. No acute fracture. IMPRESSION: No acute process. Medications Administered ER Medications Given: NSS 1L bolus Banana Bag Dexamethasone 6mg IV ECG Indication: SOB/dyspnea Rate (beats per minute): 115 Rhythm: sinus tachycardia Findings: no acute ischemic change Comparison ECG Date: from (Feb 26, 2020) Change: no significant change Code Status & VTE Plan Code Status Full VTE Prophylaxis Plan VTE Prophylaxis will be ordered: Yes PG Care Time/CCT Total # of Minutes Spent Total Time Spent with Patient: Total time spent is greater than 50% in coordination of care (as documented) at patient's floor/unit and/or counseling patient: Coding Level of Care Code 24338 Initial Inpt Care Lvl 3 Diagnoses Lactic acidosis E87.2 Altered mental status R41.82 Alcohol intoxication F10.929 Pneumonia due to COVID-19 virus U07.1; J12.82 Transaminitis R74.01
[2020-11-05 20:34] LABS: C Reactive Protein < 0.29 mg/dl (0-0.29)
[2020-11-05] MEDS ORDERED: POLYETHYLENE (MIRALAX) 17 GM PACK PO PRN (21:43)
[2020-11-05] MEDS ORDERED: ALUMINUM/MAGNESIUM SUSP 30 ML UDC PO PRN (21:43)
[2020-11-05] MEDS ORDERED: ONDANSETRON INJ 2 MG/ML 2 ML VIAL IV PRN (21:43)
[2020-11-05] MEDS ORDERED: ACETAMINOPHEN 325 MG TAB PO PRN (21:43)
[2020-11-05] MEDS: THIAMINE HCL 100 MG TAB PO SCH (22:11)
[2020-11-05] MEDS: FOLIC ACID 1 MG TAB PO SCH (22:12)
[2020-11-05] MEDS: D5W AND 1/2NSS + 20MEQ KCL 20 MEQ/1,000 ML BAG IV SCH (22:13)
[2020-11-05] MEDS: LORazepam 1 MG/2 ML VIAL IV PRN (22:46)
[2020-11-06 03:00] LABS: Appearance Urine Clear (Clear); Bacteria Urine Automated Negative (Negative); Bilirubin Urine Negative (Negative); Blood Urine Negative (Negative); Cast Urine Automated 0 /lpf (0-5); Color Urine Dark Yellow; Epithelial Cell Urine Auto 0-5 /lpf (0-5); Glucose Urine UA 2+ (Negative); Ketones Urine 3+ (Negative); Leukocyte Esterase Urine Negative (Negative); Nitrite Urine Negative (Negative); Protein Urine Trace (Negative); RBC Urine Automated 0-4 /hpf (0-4); Specific Gravity Urine 1.041 (1.000-1.030); Urobilinogen Urine Negative (Negative); pH Urine 5.5 (4.5-7.5)
[2020-11-06 03:13] LABS: Amphetamines+Metham, Urine Neg (Neg); Barbiturates, Urine Neg (Neg); Benzodiazepine, Urine Neg (Neg); Cocaine, Urine Neg (Neg); MDMA (Ecstacy), Urine Neg (Neg); Methadone, Urine Neg (Neg); Opiate, Urine Neg (Neg); Phencyclidine, Urine Neg (Neg)
[2020-11-06] MEDS: D5W AND 1/2NSS + 20MEQ KCL 20 MEQ/1,000 ML BAG IV SCH (08:14)
[2020-11-06] MEDS: THIAMINE HCL 100 MG TAB PO SCH (08:29)
[2020-11-06] MEDS: FOLIC ACID 1 MG TAB PO SCH (08:29)
[2020-11-06 08:33] LABS: Hematocrit (blood only) 41.8 % (42-52); Hemoglobin 14.4 g/dL (14.0-18.0); Immature Granulocytes # (auto) 0.02 K/uL (0.00-0.02); Immature Granulocytes % (auto) 0.4 %; Lymphocytes # (auto) 1.07 K/uL (1.2-3.4); Lymphocytes % (auto) 22.1 %; Mean Corpuscular Hemoglobin 32.8 pg (25-34); Mean Corpuscular Hgb Conc 34.4 g/dL (32-36); Mean Corpuscular Volume 95.2 fL (80-100); Monocytes % (auto) 10.3 %; Neutrophils # (auto) 3.26 K/uL (1.4-6.5); Neutrophils % (auto) 67.2 %; Platelet Count 236 K/uL (130-400); RDW Coefficient of Variation 13.3 % (11.5-14.5); RDW Standard Deviation 46.7 fL (36.4-46.3); Red Blood Count 4.39 M/uL (4.7-6.1); White Blood Count 4.85 K/uL (4.8-10.8)
[2020-11-06] MEDS: LORazepam 1 MG/2 ML VIAL IV PRN (08:34)
[2020-11-06] MEDS ORDERED: ENOXAPARIN INJ 40 MG/0.4 ML SYR SQ SCH (09:00)
[2020-11-06 09:11] LABS: Albumin Level 3.4 gm/dl (3.4-5.0); BUN Creatinine Ratio 8.8 (10-20); Calcium 8.8 mg/dl (8.5-10.1); Creatinine Clr Calc Pharmacy 150.5 ml/min; Est GFR (African American) 132.8 ml/min; Est GFR (Non-African American) 114.6 ml/min; Potassium 3.8 mmol/L (3.5-5.1)
[2020-11-06 09:14] LABS: Albumin Globulin Ratio 0.9 (0.9-2); Bilirubin,Total 0.6 mg/dl (0.2-1); Globulin 3.8 gm/dl (2.5-4.0); Total Protein 7.2 gm/dl (6.4-8.2)
[2020-11-06 10:57] VITALS: BP 150/107; TEMP 97.9; O2SAT 100
--- NOTE | 2020-11-06 14:27 | Discharge Summary ---
Date of Service November 06, 2020 Admission HPI Per Admitting Provider Chino Sanches is a 34 year old male with alcoholism who presents to the ER after his girlfriend called the ambulance due to the patient losing consciousness. He has known COVID-19 pneumonia. He is not vaccinated. Currently on day 9 of illness. He feels he is getting better from a COVID stand point however. Mainly now just has generalized myalgias, non-productive cough, fatigue, diarrhea, loss of taste and smell with reduced appetite. He is no longer having fever, chills or significant shortness of breath at rest. However he has known alcohol use disorder but had been having significant periods of abstention but drank 1.5 bottles of vodka yesterday up until around 5 hours ago (notably EMS found 3 empty bottles of vodka. His girlfriend couldn't wake him up therefore called for an ambulance today. He reports going back to drinking after abstaining for the last 4 weeks prior to this. He went back to drinking to numb the effects of COVID. 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 In the ER he was noted to be mildly hypoxic when sleeping therefore was given dexamethasone 6mg IV and referred to medicine for ongoing management for COVID- 19 pneumonia and hypoxia. Lactic acid was 4.2, AST 236, ALT 302. He tried to sign out against medical advice on multiple occasions however his girlfriend is unwilling to give him a lift home at the current time therefore is now willing to stay. Principal Diagnosis COVID 19 infection, mild pneumonia Transient hypoxia Alcohol abuse, intoxication Discharge Exam General: well developed, well nourished, no acute distress, comfortable Neck: supple, trachea midline, normal thyroid Lungs: clear to auscultation bilaterally, normal respiratory effort, no accessory muscle use, no distress Heart: regular S1 and S2, no murmur, peripheral pulses normal, capillary refill normal, no edema Abdomen: soft, NT, ND, + BS, no hepatomegaly, normal to percussion Extremities: normal in appearance, no cyanosis, no petechiae, strength is 5/5 bilaterally Neuro: awake, cooperative, moves all extremities, no focal motor deficits, CN II-XII intact, sensation in extremities intact, normal speech Skin: warm, dry, no rash, normal turgor Psych: Awake, alert oriented x 3, euthymic affect Discharge Data Allergies Allergy/AdvReac Type Severity Reaction Status Date / Time No Known Allergies Allergy Verified 11/05/20 21:13 Consultations 11/05/20 16:25 ED Decision to Admit Stat Ordered Studies 11/05/20 15:16 CT angio chest PE protocol Stat CT cervical spine wo con Stat CT head/brain wo con Stat Hospital Course (1) Pneumonia due to COVID-19 virus: Maintaining O2 sats while awake today he is 100% on room air, no distress or tachypnea, minimal coughing CT chest showed very mild changes, certainly no evidence of severe disease suspect his hypoxia yesterday was due to alcohol intoxication, decreased respiratory drive patient will be discharged to home instructed to stay well hydrated, well nourished, well rested avoid all alcohol advised to monitor his shortness of breath, if he feels short of breath he can check pulse ox, come back to ED if saturations < 89% patient feels comfortable going home, feels like he is getting better, eating and drinking well today (2) Lactic acidosis: Elevated lactate without acidemia. Suspect from alcohol use and reduced lactate elimination. Sepsis not suspected. 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 Hepatic steotosis on CT recommend stopping all alcohol VTE Prophylaxis - lovenox 40mg SQ QAM Diet - regular Disposition - discharge to home Total Time Total Time Spent Total Time Spent (In Minutes): 32 Total Time Includes: Examination of the Patient, Discharge Planning and Medication Reconciliation Discharge Plan Discharge Items Patient Disposition: Home - Self-Care Reason For Visit: COVID 19 Discharge Diagnosis: COVID 19 infection Transient hypoxia due to alcohol intoxication Condition on Discharge: Good Goals: stay well nourished, well hydrated, well rested avoid all alcohol connect with support services for alcohol rehab, abstinence Activity: Resume your previous activity Driving/Machine Use: No limitations Weightbearing: Full weightbearing Non-emergency contact: Primary Care Provider Call non-emergency contact if: you have any medication questions Follow-up/Referrals: PCP,NO [Primary Care Provider] - Diet: Regular Addtl Attending Provider Instructions: COVID 19 infection: suspect you have had COVID for over a week since that is when symptoms began CT of the chest shows minimal changes, very mild pneumonia at best, no evidence of blood clot you are 100% on room air, thus no need to keep you in the hospital and no need for dexamethasone (steroid) your low oxygen levels yesterday were due to alcohol intoxication, altered mental status and hypoventilation now that you are sober and alert your breathing is fine likely through the worst of the infection stay well nourished and well hydrated and get a lot of rest *AVOID ALL ALCOHOL as this could put you at risk of further deterioration, vomiting, aspiration you can take vitamin supplements for immune health such as Vitamin D, Vitamin C and Zinc rodriguez symptom to monitor is shortness of breath, if you feel like your breathing is getting worse you can check finger pulse oximeter (you can purchase this at pharmacy) if saturations are less than 89% on room air then return to emergency department Alcohol abuse: recommend using resources, support groups, family support Pending Studies at Discharge: No Stand-Alone Forms: My [employer], Smoking Cessation Medications and DC Order Prescriptions: No Action No Known Home Medications RF: 0 Discharge Orders: Discharge Order (Routine); Ordered 11/06/20 Ordered By: Luis F Wall Admission Data Admit Date/Time: 11/05/20 17:37 Attending Provider: Luis F Wall Admit Provider: Ervin Centeno Primary Care Provider: PCP,NO Other Providers: Ervin Centeno Coding Level of Care Code D/C DAY MANAGEMENT >30 MINS Diagnoses Pneumonia due to COVID-19 virus U07.1; J12.82 Lactic acidosis E87.2 Alcohol intoxication F10.929 Complication of substance-induced condition: with unspecified complication Altered mental status R41.82 Transaminitis R74.01
[2020-11-06 15:03] VITALS: PULSE 97
--- NOTE | 2020-11-07 06:08 | Electrocardiogram Report ---
Test Reason : Blood Pressure : / mmHG Vent. Rate : 115 BPM Atrial Rate : 115 BPM P-R Int : 140 ms QRS Dur : 082 ms QT Int : 346 ms P-R-T Axes : 031 039 016 degrees QTc Int : 478 ms Sinus tachycardia Poor R wave progression, consider anterior DE vs. lead placement vs. LVH Abnormal ECG When compared with ECG of 26-FEB-2020 16:40, No significant change was found Confirmed by Franklyn Simmons ([id number]) on 11/07/2020 6:07:32 AM Referred By: Confirmed By:Franklyn Simmons
== END 2020-11-06 15:39 | disposition home or self-care (01) | DRG 177 ==
LOC: ED 14:00 → SUATTDRO 17:37 → 2S 17:37
DX: Z51.81 Encounter for therapeutic drug level monitoring; K76.0 Fatty (change of) liver, not elsewhere classified; R09.02 Hypoxemia; F10.129 Alcohol abuse with intoxication, unspecified; U07.1 COVID-19; F17.200 Nicotine dependence, unspecified, uncomplicated; J12.82 Pneumonia due to coronavirus disease 2019; Y90.9 Presence of alcohol in blood, level not specified; E87.2 Acidosis

== ENCOUNTER 2022-02-17 17:51 | Inpatient (IN) ==
[2022-02-17] MEDS ORDERED: SODIUM CHLORIDE 0.9% 1000ML 1,000 ML IV ONE (18:33)
[2022-02-17] MEDS ORDERED: LORazepam 2 MG/1 ML VIAL IV STA (19:20)
[2022-02-17] MEDS ORDERED: MULTI-VITAMIN INFUSION 10 ML, THIAMINE HCL 100 MG, FOLIC ACID 1 MG in SODIUM CHLORIDE 0... IV ONE (19:20)
[2022-02-17] MEDS ORDERED: PANTOprazole 80 MG in DEXTROSE 5% 100 ML IV STA (19:20)
[2022-02-17 19:21] LABS: Hematocrit (blood only) 48.1 % (40.1-51.0); Hemoglobin 16.5 g/dl (14.0-18.0); Mean Corpuscular Hemoglobin 30.6 pg (25.0-34.0); Mean Corpuscular Hgb Conc 34.3 g/dL (32.0-36.0); Mean Corpuscular Volume 89.1 fL (80.0-100.0); Mean Platelet Volume 8.8 fL (9.4-12.4); Platelet Count 418 K/uL (130-400); RDW Coefficient of Variation 13.2 % (11.5-14.5); RDW Standard Deviation 43.5 fL (36.4-46.3)
[2022-02-17 19:29] LABS: Appearance Urine Clear (Clear); Bacteria Urine Automated Negative (Negative); Bilirubin Urine Negative (Negative); Blood Urine Trace (Negative); Color Urine Yellow; Glucose Urine UA Negative (Negative); Ketones Urine Negative (Negative); Leukocyte Esterase Urine Negative (Negative); Nitrite Urine Negative (Negative); Protein Urine Negative (Negative); RBC Urine Automated 0-4 /hpf (0-4); Specific Gravity Urine 1.006 (1.000-1.030); Urobilinogen Urine Negative (Negative)
--- NOTE | 2022-02-17 19:32 | Emergency Department Note ---
Impression & Plan Alcoholic intoxication, Alcohol withdrawal syndrome, Hematemesis ED Provider Note Provider: Asad Anna MD DATE OF SERVICE: 02/12/2022 CHIEF COMPLAINT: Alcohol use/withdrawal HISTORY OF PRESENT ILLNESS: Patient is a 36-year-old gentleman history of prior heroin and alcohol abuse presenting here today with his fiance reporting over the past approximately week he is fallen off the wagon has begun drinking again. Has not used narcotics in about 2 years. States heavy drinking of alcohol and vodka over the past week or so over the last several days having intermittent nausea and vomiting with some blood in it. Denies bloody stools or significant black stools. Denies heartburn or abdominal pain at this time. Did fall about 4 days ago and struck his head without loss of consciousness but currently denies any headache. Had some alcohol prior to coming in. Reports a history of multiple rehab stays in the past and significant withdrawal symptoms including hallucinations. Does not report a history of seizures. Has been very depressed given his relapse. PAST MEDICAL HISTORY: As noted above MEDICATIONS: Denies current SOCIAL HISTORY: Recent heavy alcohol use, engaged, recently laid off PHYSICAL EXAM: GENERAL: alert and oriented appears somewhat anxious on the stretcher Head: normocephalic with a faintly healing abrasion mid forehead at the hairline without laceration or crepitus. No significant contusion. No simons sign or raccoon eyes noted. EYES: No injection, discharge or icterus. PERRL, EOMI. NECK: Trachea midline. Supple without significant midline tenderness ENT: Mucous membranes pink and moist. Pharynx without erythema or exudate. LUNGS: Airway patent. No retractions. Breath sounds clear with good air entry bilaterally. HEART: Regular tachycardic rate and rhythm. No chest wall tenderness ABDOMEN: Soft and non-tender, without guarding or rebound. SKIN: Acyanotic, warm, dry, without rashes EXTREMITIES: Without swelling, tenderness or deformity NEUROLOGICAL: No focal deficits. No aphasia. No facial droop or slurred speech. Ambulatory. EK bpm sinus tachycardia without PVC or PAC. No acute ST segment elevation. QTc 449. Normal axis. CONTINUOUS CARDIAC MONITORING: was ordered and showed a heart rate of 100s-130s bpm in normal sinus rhythm to sinus tachycardia GCS 15. Patient's laboratory studies and imaging reviewed. Differential includes Alcohol intoxication, toxicologic, infection, hypoglycemia, electrolyte abnormalities, cardiac sources, intracerebral event, neurologic, trauma, as well as other pathologies. IMPRESSION/MEDICAL DECISION MAKING: Patient reports significant alcohol use with history of withdrawal with hallucinations. Denies acute SI but feeling quite depressed. Given some IV fluids as well as some Ativan to help with his tachycardia and hypertension and also somewhat with anxiety. Not sure given that he recently drank that he is in genaro withdrawal yet. Given that he did fall although not having seen the neurological symptoms been several days and complete a CT of the head to exclude acute or cranial abnormality. Lower suspicion for cervical spine injury given the duration and lack of symptoms. Fairly benign abdomen but he does report that he has vomited some blood. Given some Protonix IV. Question gastritis versus Jennifer-Kirkland given his alcohol use. Lower suspicion for severe acute upper GI bleed as he states symptoms have been somewhat intermittent and denies a history of ulcer to his knowledge. No vomiting here. Hemoglobin here is reassuring. No significant leukocytosis. No severe hyperkalemia or hyponatremia. Normal renal function. No significant transaminitis noted. No BUN elevation. Some anion gap like related to his alcohol use and possibly mild ketosis from this but not DKA. Again receiving IV fluids as well as banana bag. Negative COVID. CT of the head report reassuring without evidence of bleed reported. Positive THC and did recently use some by his report. Alcohol level significantly elevated. Hospitalist evaluated for further care given his hematemesis and history of alcohol withdrawal. Patient and floanc in agreement. DIAGNOSIS: Alcohol intoxication, hematemesis, history of alcohol withdrawal DISPOSITION: Hospitalist will evaluate Patient was agreeable with this plan. Past Med/Surg History Medical History (Updated 02/17/22 @ 22:05 by Marquita Camacho DO) Alcohol intoxication Depression Hypoxia Surgical History [place] teeth extracted Family History Other No significant family history Social History Smoking Status: Never smoker Second Hand Exposure: Yes; Hx Alcohol Use: Yes Alcohol type: hard liquor Hx Substance Use: No Preferred Language: [place] Communication Ability: Effective Market Manager Required: No Beliefs That Will Affect Care: None Current Living Situation: Spouse How many Children do You have: 0 Other Information That Helps Us Care for You: No Feels Safe at Home: Yes Safety Concerns: Feels Safe At This Time Assistive Devices: None Allergies Allergies Allergy/AdvReac Type Severity Reaction Status Date / Time No Known Allergies Allergy Verified 11/05/20 21:13 Home Meds Home Medications Medication Instructions Recorded Confirmed No Known Home Medications 11/05/20 02/17/22 Results & Data (ED) Vital Signs Vital Signs - 24 hr 02/17/22 17:55 02/17/22 18:09 02/17/22 18:10 Temperature 36.9 C Temperature Source Temporal Artery Scan Pulse Rate 135 H Pulse Rate [Apical] 138 H Pulse Rhythm [Apical] Regular Pulse Strength [Apical] Normal Respiratory Rate 16 20 Respiratory Effort / Characteristics Non-Labored Respiratory Depth Normal Respiratory Pattern Regular Blood Pressure 138/96 Blood Pressure [Right Arm] 127/99 Blood Pressure Mean 110 Blood Pressure Mean [Right Arm] 108 Blood Pressure Position [Right Arm] Lying Pulse Oximetry 96 97 Oxygen Delivery Method Room Air Room Air Room Air Sepsis Recent Fever Within 48 Hours No Sepsis New/Unexplained Change in Mental Status N/A Sepsis Action Taken by Nursing No Action Required 02/17/22 18:28 02/17/22 19:36 02/17/22 18:30 Temperature Temperature Source Pulse Rate 135 H Pulse Rate [Apical] 118 H Pulse Rhythm [Apical] Pulse Strength [Apical] Respiratory Rate 18 15 Respiratory Effort / Characteristics Non-Labored Respiratory Depth Normal Respiratory Pattern Blood Pressure 137/94 Blood Pressure [Right Arm] 140/94 Blood Pressure Mean 108 Blood Pressure Mean [Right Arm] 109 Blood Pressure Position [Right Arm] Pulse Oximetry 92 97 91 Oxygen Delivery Method Room Air Room Air Sepsis Recent Fever Within 48 Hours Sepsis New/Unexplained Change in Mental Status Sepsis Action Taken by Nursing 02/17/22 18:30 02/17/22 19:00 02/17/22 19:00 Temperature Temperature Source Pulse Rate 132 H 123 H 118 H Pulse Rate [Apical] Pulse Rhythm [Apical] Pulse Strength [Apical] Respiratory Rate 15 18 Respiratory Effort / Characteristics Respiratory Depth Respiratory Pattern Blood Pressure 135/98 Blood Pressure [Right Arm] Blood Pressure Mean 110 Blood Pressure Mean [Right Arm] Blood Pressure Position [Right Arm] Pulse Oximetry 90 94 Oxygen Delivery Method Room Air Sepsis Recent Fever Within 48 Hours Sepsis New/Unexplained Change in Mental Status Sepsis Action Taken by Nursing 02/17/22 19:30 Temperature Temperature Source Pulse Rate 117 H Pulse Rate [Apical] Pulse Rhythm [Apical] Pulse Strength [Apical] Respiratory Rate 17 Respiratory Effort / Characteristics Respiratory Depth Respiratory Pattern Blood Pressure 140/94 Blood Pressure [Right Arm] Blood Pressure Mean 109 Blood Pressure Mean [Right Arm] Blood Pressure Position [Right Arm] Pulse Oximetry 97 Oxygen Delivery Method Room Air Sepsis Recent Fever Within 48 Hours Sepsis New/Unexplained Change in Mental Status Sepsis Action Taken by Nursing Laboratory Data 02/17/22 18:18 02/17/22 18:18 Lab Results 02/17/22 02/17/22 02/17/22 Range/Units 18:18 18:18 18:18 WBC 7.00 (4.8-10.8) K/ul RBC 5.40 (4.63-6.08) M/uL Hgb 16.5 (14.0-18.0) g/dl Hct 48.1 (40.1-51.0) % MCV 89.1 (80.0-100.0) fL MCH 30.6 (25.0-34.0) pg MCHC 34.3 (32.0-36.0) g/dL RDW Std Deviation 43.5 (36.4-46.3) fL RDW Coeff of [place] 13.2 (11.5-14.5) % Plt Count 418 H (130-400) K/uL MPV 8.8 L (9.4-12.4) fL Immature Gran % (Auto) 0.4 % Neut % (Auto) 39.3 % Lymph % (Auto) 51.0 % [place] % (Auto) 7.3 % Eos % (Auto) 1.3 % Baso % (Auto) 0.7 % Neut # (Auto) 2.75 (1.4-6.5) K/uL Lymph # (Auto) 3.57 H (1.2-3.4) K/uL [place] # (Auto) 0.51 (0.24-0.82) K/uL Eos # (Auto) 0.09 (0-0.50) K/uL Baso # (Auto) 0.05 (0-0.2) K/uL Immature Gran # (Auto) 0.03 H (0.00-0.02) K/uL Sodium 140 (136-145) mmol/L Potassium 3.5 (3.5-5.1) mmol/L Chloride 102 (98-107) mmol/L Carbon Dioxide 20 L (21-32) mmol/L Anion Gap 18 H (3-11) BUN 8 (6-23) mg/dl Creatinine 0.98 (0.6-1.4) mg/dl Est Cr Clr Drug Dosing Not Reportable Est GFR ( Amer) 113.7 ml/min Est GFR (Non-Af Amer) 98.1 ml/min BUN/Creatinine Ratio 8.2 L (10-20) Glucose 153 H (70-99(Fasting)) mg/dl Calcium 8.9 (8.5-10.1) mg/dl Magnesium (1.7-2.4) mg/dl Total Bilirubin 0.5 (0.2-1.0) mg/dl AST 23 (13-39) U/L ALT 26 (7-52) U/L Alkaline Phosphatase 50 (34-104) U/L Troponin I High Sens (0-20) pg/ml Total Protein 8.2 (6.0-8.3) gm/dl Albumin 4.6 (3.4-5.0) gm/dl Globulin 3.6 (2.5-4.0) gm/dl Albumin/Globulin Ratio 1.3 (0.9-2) TSH 0.302 (0.300-4.500) uIu/ml Urine Color Urine Appearance (Clear) Urine pH (4.5-7.5) Ur Specific [place] (1.000-1.030) Urine Protein (Negative) Urine Glucose (UA) (Negative) Urine Ketones (Negative) Urine Blood (Negative) Urine Nitrite (Negative) Urine Bilirubin (Negative) Urine Urobilinogen (Negative) Ur Leukocyte Esterase (Negative) Urine WBC (Auto) (0-5) /hpf Urine RBC (Auto) (0-4) /hpf U Hyaline Cast (Auto) (0-5) /lpf U Epithel Cells (Auto) (0-5) /lpf Urine Bacteria (Auto) (Negative) Salicylates Urine Opiates Screen (Neg) Ur Methadone, Qual (Neg) Acetaminophen Urine Barbiturates (Neg) Ur Phencyclidine (PCP) (Neg) U Amphetamin/Meth Scrn (Neg) MDMA (Ecstasy) Screen (Neg) U Benzodiazepines Scrn (Neg) Ur Cocaine Metabolite (Neg) U Marijuana (THC) Screen (Neg) Ethyl Alcohol mg/dL (<10.0) mg/dl SARS-CoV-2, RNA, NAAT (NEGATIVE) 02/17/22 02/17/22 02/17/22 Range/Units 18:18 18:18 18:18 WBC (4.8-10.8) K/ul RBC (4.63-6.08) M/uL Hgb (14.0-18.0) g/dl Hct (40.1-51.0) % MCV (80.0-100.0) fL MCH (25.0-34.0) pg MCHC (32.0-36.0) g/dL RDW Std Deviation (36.4-46.3) fL RDW Coeff of [place] (11.5-14.5) % Plt Count (130-400) K/uL MPV (9.4-12.4) fL Immature Gran % (Auto) % Neut % (Auto) % Lymph % (Auto) % [place] % (Auto) % Eos % (Auto) % Baso % (Auto) % Neut # (Auto) (1.4-6.5) K/uL Lymph # (Auto) (1.2-3.4) K/uL [place] # (Auto) (0.24-0.82) K/uL Eos # (Auto) (0-0.50) K/uL Baso # (Auto) (0-0.2) K/uL Immature Gran # (Auto) (0.00-0.02) K/uL Sodium (136-145) mmol/L Potassium (3.5-5.1) mmol/L Chloride (98-107) mmol/L Carbon Dioxide (21-32) mmol/L Anion Gap (3-11) BUN (6-23) mg/dl Creatinine (0.6-1.4) mg/dl Est Cr Clr Drug Dosing Est GFR ( Amer) ml/min Est GFR (Non-Af Amer) ml/min BUN/Creatinine Ratio (10-20) Glucose (70-99(Fasting)) mg/dl Calcium (8.5-10.1) mg/dl Magnesium 2.1 (1.7-2.4) mg/dl Total Bilirubin (0.2-1.0) mg/dl AST (13-39) U/L ALT (7-52) U/L Alkaline Phosphatase (34-104) U/L Troponin I High Sens 4.9 (0-20) pg/ml Total Protein (6.0-8.3) gm/dl Albumin (3.4-5.0) gm/dl Globulin (2.5-4.0) gm/dl Albumin/Globulin Ratio (0.9-2) TSH (0.300-4.500) uIu/ml Urine Color Urine Appearance (Clear) Urine pH (4.5-7.5) Ur Specific [place] (1.000-1.030) Urine Protein (Negative) Urine Glucose (UA) (Negative) Urine Ketones (Negative) Urine Blood (Negative) Urine Nitrite (Negative) Urine Bilirubin (Negative) Urine Urobilinogen (Negative) Ur Leukocyte Esterase (Negative) Urine WBC (Auto) (0-5) /hpf Urine RBC (Auto) (0-4) /hpf U Hyaline Cast (Auto) (0-5) /lpf U Epithel Cells (Auto) (0-5) /lpf Urine Bacteria (Auto) (Negative) Salicylates Cancelled Urine Opiates Screen (Neg) Ur Methadone, Qual (Neg) Acetaminophen Cancelled Urine Barbiturates (Neg) Ur Phencyclidine (PCP) (Neg) U Amphetamin/Meth Scrn (Neg) MDMA (Ecstasy) Screen (Neg) U Benzodiazepines Scrn (Neg) Ur Cocaine Metabolite (Neg) U Marijuana (THC) Screen (Neg) Ethyl Alcohol mg/dL 371.0 H (<10.0) mg/dl SARS-CoV-2, RNA, NAAT (NEGATIVE) 02/17/22 02/17/22 02/17/22 Range/Units 18:37 18:37 18:39 WBC (4.8-10.8) K/ul RBC (4.63-6.08) M/uL Hgb (14.0-18.0) g/dl Hct (40.1-51.0) % MCV (80.0-100.0) fL MCH (25.0-34.0) pg MCHC (32.0-36.0) g/dL RDW Std Deviation (36.4-46.3) fL RDW Coeff of [place] (11.5-14.5) % Plt Count (130-400) K/uL MPV (9.4-12.4) fL Immature Gran % (Auto) % Neut % (Auto) % Lymph % (Auto) % [place] % (Auto) % Eos % (Auto) % Baso % (Auto) % Neut # (Auto) (1.4-6.5) K/uL Lymph # (Auto) (1.2-3.4) K/uL [place] # (Auto) (0.24-0.82) K/uL Eos # (Auto) (0-0.50) K/uL Baso # (Auto) (0-0.2) K/uL Immature Gran # (Auto) (0.00-0.02) K/uL Sodium (136-145) mmol/L Potassium (3.5-5.1) mmol/L Chloride (98-107) mmol/L Carbon Dioxide (21-32) mmol/L Anion Gap (3-11) BUN (6-23) mg/dl Creatinine (0.6-1.4) mg/dl Est Cr Clr Drug Dosing Est GFR ( Amer) ml/min Est GFR (Non-Af Amer) ml/min BUN/Creatinine Ratio (10-20) Glucose (70-99(Fasting)) mg/dl Calcium (8.5-10.1) mg/dl Magnesium (1.7-2.4) mg/dl Total Bilirubin (0.2-1.0) mg/dl AST (13-39) U/L ALT (7-52) U/L Alkaline Phosphatase (34-104) U/L Troponin I High Sens (0-20) pg/ml Total Protein (6.0-8.3) gm/dl Albumin (3.4-5.0) gm/dl Globulin (2.5-4.0) gm/dl Albumin/Globulin Ratio (0.9-2) TSH (0.300-4.500) uIu/ml Urine Color Yellow Urine Appearance Clear (Clear) Urine pH 6.0 (4.5-7.5) Ur Specific [place] 1.006 (1.000-1.030) Urine Protein Negative (Negative) Urine Glucose (UA) Negative (Negative) Urine Ketones Negative (Negative) Urine Blood Trace H (Negative) Urine Nitrite Negative (Negative) Urine Bilirubin Negative (Negative) Urine Urobilinogen Negative (Negative) Ur Leukocyte Esterase Negative (Negative) Urine WBC (Auto) 1-5 (0-5) /hpf Urine RBC (Auto) 0-4 (0-4) /hpf U Hyaline Cast (Auto) 1-5 (0-5) /lpf U Epithel Cells (Auto) 5-10 H (0-5) /lpf Urine Bacteria (Auto) Negative (Negative) Salicylates Urine Opiates Screen Neg (Neg) Ur Methadone, Qual Neg (Neg) Acetaminophen Urine Barbiturates Neg (Neg) Ur Phencyclidine (PCP) Neg (Neg) U Amphetamin/Meth Scrn Neg (Neg) MDMA (Ecstasy) Screen Neg (Neg) U Benzodiazepines Scrn Neg (Neg) Ur Cocaine Metabolite Neg (Neg) U Marijuana (THC) Screen Pos H (Neg) Ethyl Alcohol mg/dL (<10.0) mg/dl SARS-CoV-2, RNA, NAAT NEGATIVE (NEGATIVE) Administered Medications Chlordiazepoxide HCl (Chlordiazepoxide Hcl 25 Mg Cap) 50 mg PO Q6H TRESSA; Taper Stop: 02/20/22 21:59 Last Admin: 02/17/22 22:17 Dose: 50 mg Documented By: JENNIFER Pantoprazole Sodium 40 mg/ (Syringe) 10 mls @ 5 mls/min IV BID TRESSA Stop: 03/19/22 21:50 Last Admin: 02/17/22 22:32 Dose: Not Given Documented By: [facility] Lorazepam (Lorazepam 2 Mg/1 Ml Vial) 1 mg IV UD PRN; Protocol PRN Reason: EtOH Withdrawal AWSS Score 6,7 Stop: 03/19/22 21:50 Last Admin: 02/17/22 22:17 Dose: 1 mg Documented By: [facility] Discontinued Medications Diazepam (Diazepam 5 Mg Tablet) 20 mg PO NOW ONE Stop: 02/17/22 21:52 Last Admin: 02/17/22 22:16 Dose: 20 mg Documented By: [facility] Sodium Chloride (Nss 1000ml) 1,000 mls @ 999 mls/hr IV .Q1H1M ONE Stop: 02/17/22 19:33 Last Infusion: 02/17/22 19:35 Dose: 0 mls/hr Documented By: Admin: 02/17/22 18:30 Dose: 999 mls/hr Documented By: RC Multivitamins 10 ml/ Thiamine HCl 100 mg/ Folic Acid 1 mg/Sodium Chloride 1,011.2 mls @ 1,011.2 mls/hr IV .Q1H ONE Stop: 02/17/22 20:19 Last Infusion: 02/17/22 22:18 Dose: 0 mls/hr Documented By: Admin: 02/17/22 21:00 Dose: 1,011.2 mls/hr Documented By: JENNIFER Pantoprazole Sodium 80 mg/ (Dextrose) 100 mls @ 400 mls/hr IV ONE STA Stop: 02/17/22 19:34 Last Infusion: 02/17/22 20:31 Dose: 0 mls/hr Documented By: Admin: 02/17/22 20:12 Dose: 400 mls/hr Documented By: Lorazepam (Lorazepam 2 Mg/1 Ml Vial) 2 mg IV NOW STA Stop: 02/17/22 19:21 Last Admin: 02/17/22 19:49 Dose: 2 mg Documented By: JIMI Imaging Data Radiologist's Impression: Head CT 02/17/22 19:[address] DOSE: 691.05 mGy.cm HISTORY: hit head, etoh TECHNIQUE: Multiaxial CT images of the head were performed without the use of intravenous contrast. Automated exposure control was utilized for this study. A dose lowering technique was utilized adhering to the principles of ALARA. Comparison: Head CT 11/05/2020. Findings: The paranasal sinuses and mastoid air cells are clear. The calvarium and skull base are intact. The ventricles and sulci are within normal limits. There is no mass, hematoma, midline shift, or acute infarct. Impression: No acute intracranial abnormality. ACT 112: Negative or not required by law. Electronically signed by: Myron Mark M.D. 02/17/2022 8:11 PM Discharge Plan Visit Data Chief Complaint: Detox Request Stated Complaint: ALCOHOL DETOX ED Provider: Asad Anna Discharge Problem: Alcoholic intoxication, Alcohol withdrawal syndrome, Hematemesis Patient Disposition: Admitted As Inpatient Discharge Instructions Interventions: ED Discharge Assessment Last Done: 02/17/22 21:04 : Alcoholic intoxication Qualifiers: Complication of substance-induced condition: with unspecified complication Qualified Code(s): F10.929 - Alcohol use, unspecified with intoxication, unspecified
[2022-02-17 19:42] LABS: Basophils # (auto) 0.05 K/uL (0-0.2); Basophils % (auto) 0.7 %; Eosinophils # (auto) 0.09 K/uL (0-0.50); Eosinophils % (auto) 1.3 %; Immature Granulocytes # (auto) 0.03 K/uL (0.00-0.02); Immature Granulocytes % (auto) 0.4 %; Lymphocytes # (auto) 3.57 K/uL (1.2-3.4); Monocytes # (auto) 0.51 K/uL (0.24-0.82); Monocytes % (auto) 7.3 %; Neutrophils # (auto) 2.75 K/uL (1.4-6.5); Neutrophils % (auto) 39.3 %
[2022-02-17 19:45] LABS: Alanine Aminotransferase 26 U/L (7-52); Albumin Globulin Ratio 1.3 (0.9-2); Albumin Level 4.6 gm/dl (3.4-5.0); Alkaline Phosphatase 50 U/L (34-104); Anion Gap 18 (3-11); Aspartate Aminotransferase 23 U/L (13-39); BUN Creatinine Ratio 8.2 (10-20); Bilirubin,Total 0.5 mg/dl (0.2-1.0); Blood Urea Nitrogen 8 mg/dl (6-23); Calcium 8.9 mg/dl (8.5-10.1); Carbon Dioxide 20 mmol/L (21-32); Chloride 102 mmol/L (98-107); Est GFR (African American) 113.7 ml/min; Est GFR (Non-African American) 98.1 ml/min; Globulin 3.6 gm/dl (2.5-4.0); Glucose 153 mg/dl (70-99(Fasting)); Potassium 3.5 mmol/L (3.5-5.1); Sodium 140 mmol/L (136-145); Total Protein 8.2 gm/dl (6.0-8.3)
[2022-02-17 19:59] LABS: Amphetamines+Metham, Urine Neg (Neg); Barbiturates, Urine Neg (Neg); Benzodiazepine, Urine Neg (Neg); Cocaine, Urine Neg (Neg); MDMA (Ecstacy), Urine Neg (Neg); Methadone, Urine Neg (Neg); Opiate, Urine Neg (Neg); Phencyclidine, Urine Neg (Neg)
--- NOTE | 2022-02-17 19:59 | History & Physical Report ---
Date of Service February 17, 2022 Assessment & Plan (1) Alcohol withdrawal syndrome: Plan: 36yo male with history of EtOH abuse presenting with EtOH withdrawal. Patient was recently sober for the last 6 months but began drinking again 6 days ago. He has been drinking at least 2 750mL bottles of vodka daily for the last 6 days (appx 34 drinks per day). His last drink was immediately prior to arrival to the ER - 02/17/22 afternoon. He has history of complicated EtOH withdrawal with hallucinations in the past. Patient hypertensive, tachycardic and mildly restless on exam. He has thus far been given Ativan 2mg IV. Valium 20mg po is ordered as is banana bag x 1L. Patient is at high risk for complicated EtOH withdrawal will most likely require high doses of benzodiazepines. EtOH level = 371 -Admit to PCU -Maintain seizure precautions, aspiration precautions -Complete banana bag as ordered -Valium 20mg po now -Librium taper per protocol -IV Ativan per AWSS -Thiamine 100mg po daily -Folic Acid 1mg po daily (2) Hematemesis: Plan: Patient reports intermittent episodes of hematemesis. He is tachycardic in setting of presumed EtOH withdrawal. HR currently 123bpm. BP is stable at 131/ 94. Hgb=16.5, Hct=48.1 -Protonix 40mg IV BID -Monitor CBC -Consider GI consultation (3) High anion gap metabolic acidosis: Plan: Patient with anion gap of 18, serum HCO3 of 20. Suspect secondary to EtOH -Check VBG, Serum osmolality and Lactate F/E/N - Banana bag x 1 liter, monitor electrolytes, heart healthy diet as tolerated Ppx - Protonix 40mg IV BID Code - Full Dispo - Admit to PCU History of Present Illness Chief Complaint: alcohol withdrawal Primary Care Provider: NO PCP Chino Sanches is a 36yo male with history of EtOH abuse and depression presenting with EtOH withdrawal. Patient has been drinking intermittently for the last 13 years. He has been to rehabilitation 8 times in the past. Patient has been sober for the last 6 months but began drinking again 6 days ago. He has been drinking at least 2 bottles of vodka daily (750 mL x 2 bottles, approximately 34 EtOH drinks daily). His last drink was immediately prior to arrival - two beers. Patient reports feeling shaking, sweaty and confused at times throughout the last week. Also with some chest discomfort, nausea, vomiting with some hematemesis reported as well as diarrhea. He reports this episode of drinking is heavier in the past. He reports feeling very depressed when he is drinking. No active SI or HI. No additional complaints at this time. In the ER he is tachycardic, hypertensive. ER Course: Protonix drip Ativan 2mg IV NSS x 1L Banana bag ordered Valium 20mg po ordered Allergies Allergy/AdvReac Type Severity Reaction Status Date / Time No Known Allergies Allergy Verified 11/05/20 21:13 Home Medications Medication Instructions Recorded Confirmed Type No Known Home Medications 11/05/20 02/17/22 History Past Med/Surg History Medical History (Updated 02/17/22 @ 22:05 by Marquita Camacho DO) Alcohol intoxication Depression Hypoxia Surgical History [place] teeth extracted Family History Other No significant family history Social History Smoking Status: Never smoker Second Hand Exposure: Yes; Hx Alcohol Use: Yes Alcohol type: hard liquor Hx Substance Use: Yes Non-Prescribed Medications: Heroin Preferred Language: [place] Communication Ability: Effective 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[employer]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 Required: Yes Beliefs That Will Affect Care: None Current Living Situation: Spouse How many Children do You have: 0 Feels Safe at Home: Yes Assistive Devices: None Review of Systems Review of Systems: All systems reviewed & are unremarkable except as noted in HPI & below Physical Exam Physical Exam: General: patient tearful during exam, restless, AA&O x 4, answering questions appropriately Skin: warm, dry, intact, no rashes or lesions HEENT: NC/AT, PERRL, EOMI, anicteric sclera, conjunctiva without injection, external ear normal to inspection and nontender, nares patent, moist mucus membranes, dentition intact, no oropharyngeal lesions, neck supple, trachea midline, no LAD, no thyromegaly, no JVD Heart: +S1/S2, regular, tachycardic, no m/r/g Lungs: equal air entry bilaterally, no rales/rhonchi/wheezes Abd: +BS, soft, ND, tenderness of RUQ without rebound or guarding, no masses/organomegaly/ascites Ext: warm, 2+ pulses in UE/LE bilaterally, no clubbing/cyanosis or edema Neuro: nonfocal, patient AA&O x 4, speech intact, no facial droop, moving all extremities on command with equal strength 5/5 Results & Data Results & Data ([facility]) Vital Signs (Past 12 Hours) Vital Signs Temp Pulse Pulse Resp BP BP Pulse Ox 02/17/22 19:30 117 H 17 140/94 97 02/17/22 19:00 118 H 18 94 02/17/22 19:00 123 H 135/98 02/17/22 18:30 132 H 15 90 02/17/22 18:30 135 H 15 137/94 91 02/17/22 19:36 118 H 18 140/94 97 02/17/22 18:28 92 02/17/22 18:10 138 H 20 127/99 97 02/17/22 18:09 02/17/22 17:55 36.9 C 135 H 16 138/96 96 O2 Del Method 02/17/22 19:30 Room Air 02/17/22 19:00 Room Air 02/17/22 19:00 02/17/22 18:30 02/17/22 18:30 02/17/22 19:36 Room Air 02/17/22 18:28 Room Air 02/17/22 18:10 Room Air 02/17/22 18:09 Room Air 02/17/22 17:55 Room Air Laboratory Results Laboratory Results WBC 7.00 K/ul (4.8-10.8) 02/17/22 18:18 RBC 5.40 M/uL (4.63-6.08) 02/17/22 18:18 Hgb 16.5 g/dl (14.0-18.0) 02/17/22 18:18 Hct 48.1 % (40.1-51.0) 02/17/22 18:18 MCV 89.1 fL (80.0-100.0) 02/17/22 18:18 MCH 30.6 pg (25.0-34.0) 02/17/22 18:18 MCHC 34.3 g/dL (32.0-36.0) 02/17/22 18:18 RDW Std Deviation 43.5 fL (36.4-46.3) 02/17/22 18:18 RDW Coeff of [place] 13.2 % (11.5-14.5) 02/17/22 18:18 Plt Count 418 K/uL (130-400) H 02/17/22 18:18 MPV 8.8 fL (9.4-12.4) L 02/17/22 18:18 Immature Gran % (Auto) 0.4 % 02/17/22 18:18 Neut % (Auto) 39.3 % 02/17/22 18:18 Lymph % (Auto) 51.0 % 02/17/22 18:18 [place] % (Auto) 7.3 % 02/17/22 18:18 Eos % (Auto) 1.3 % 02/17/22 18:18 Baso % (Auto) 0.7 % 02/17/22 18:18 Neut # (Auto) 2.75 K/uL (1.4-6.5) 02/17/22 18:18 Lymph # (Auto) 3.57 K/uL (1.2-3.4) H 02/17/22 18:18 [place] # (Auto) 0.51 K/uL (0.24-0.82) 02/17/22 18:18 Eos # (Auto) 0.09 K/uL (0-0.50) 02/17/22 18:18 Baso # (Auto) 0.05 K/uL (0-0.2) 02/17/22 18:18 Immature Gran # (Auto) 0.03 K/uL (0.00-0.02) H 02/17/22 18:18 Sodium 140 mmol/L (136-145) 02/17/22 18:18 Potassium 3.5 mmol/L (3.5-5.1) 02/17/22 18:18 Chloride 102 mmol/L (98-107) 02/17/22 18:18 Carbon Dioxide 20 mmol/L (21-32) L 02/17/22 18:18 Anion Gap 18 (3-11) H 02/17/22 18:18 BUN 8 mg/dl (6-23) 02/17/22 18:18 Creatinine 0.98 mg/dl (0.6-1.4) 02/17/22 18:18 Est Cr Clr Drug Dosing Not Reportable 02/17/22 18:18 Est GFR ( Amer) 113.7 ml/min 02/17/22 18:18 Est GFR (Non-Af Amer) 98.1 ml/min 02/17/22 18:18 BUN/Creatinine Ratio 8.2 (10-20) L 02/17/22 18:18 Glucose 153 mg/dl (70-99(Fasting)) H 02/17/22 18:18 Calcium 8.9 mg/dl (8.5-10.1) 02/17/22 18:18 Magnesium 2.1 mg/dl (1.7-2.4) 02/17/22 18:18 Total Bilirubin 0.5 mg/dl (0.2-1.0) 02/17/22 18:18 AST 23 U/L (13-39) 02/17/22 18:18 ALT 26 U/L (7-52) 02/17/22 18:18 Alkaline Phosphatase 50 U/L (34-104) 02/17/22 18:18 Total Protein 8.2 gm/dl (6.0-8.3) 02/17/22 18:18 Albumin 4.6 gm/dl (3.4-5.0) 02/17/22 18:18 Globulin 3.6 gm/dl (2.5-4.0) 02/17/22 18:18 Albumin/Globulin Ratio 1.3 (0.9-2) 02/17/22 18:18 TSH 0.302 uIu/ml (0.300-4.500) 02/17/22 18:18 Urine Color Yellow 02/17/22 18:37 Urine Appearance Clear (Clear) 02/17/22 18:37 Urine pH 6.0 (4.5-7.5) 02/17/22 18:37 Ur Specific [place] 1.006 (1.000-1.030) 02/17/22 18:37 Urine Protein Negative (Negative) 02/17/22 18:37 Urine Glucose (UA) Negative (Negative) 02/17/22 18:37 Urine Ketones Negative (Negative) 02/17/22 18:37 Urine Blood Trace (Negative) H 02/17/22 18:37 Urine Nitrite Negative (Negative) 02/17/22 18:37 Urine Bilirubin Negative (Negative) 02/17/22 18:37 Urine Urobilinogen Negative (Negative) 02/17/22 18:37 Ur Leukocyte Esterase Negative (Negative) 02/17/22 18:37 Urine WBC (Auto) 1-5 /hpf (0-5) 02/17/22 18:37 Urine RBC (Auto) 0-4 /hpf (0-4) 02/17/22 18:37 U Hyaline Cast (Auto) 1-5 /lpf (0-5) 02/17/22 18:37 U Epithel Cells (Auto) 5-10 /lpf (0-5) H 02/17/22 18:37 Urine Bacteria (Auto) Negative (Negative) 02/17/22 18:37 Salicylates Cancelled 02/17/22 18:18 Urine Opiates Screen Neg (Neg) 02/17/22 18:37 Ur Methadone, Qual Neg (Neg) 02/17/22 18:37 Acetaminophen Cancelled 02/17/22 18:18 Urine Barbiturates Neg (Neg) 02/17/22 18:37 Ur Phencyclidine (PCP) Neg (Neg) 02/17/22 18:37 U Amphetamin/Meth Scrn Neg (Neg) 02/17/22 18:37 MDMA (Ecstasy) Screen Neg (Neg) 02/17/22 18:37 U Benzodiazepines Scrn Neg (Neg) 02/17/22 18:37 Ur Cocaine Metabolite Neg (Neg) 02/17/22 18:37 U Marijuana (THC) Screen Pos (Neg) H 02/17/22 18:37 SARS-CoV-2, RNA, NAAT NEGATIVE (NEGATIVE) 02/17/22 18:[address] 02/17/22 19:[address] DOSE: 691.05 mGy.cm HISTORY: hit head, etoh TECHNIQUE: Multiaxial CT images of the head were performed without the use of intravenous contrast. Automated exposure control was utilized for this study. A dose lowering technique was utilized adhering to the principles of ALARA. Comparison: Head CT 11/05/2020. Findings: The paranasal sinuses and mastoid air cells are clear. The calvarium and skull base are intact. The ventricles and sulci are within normal limits. There is no mass, hematoma, midline shift, or acute infarct. Impression: No acute intracranial abnormality. ACT 112: Negative or not required by law. Electronically signed by: Myron Mark M.D. 02/17/2022 8:11 PM PG Care Time/CCT Total # of Minutes Spent Total Time Spent with Patient: Total time spent is greater than 50% in coordination of care (as documented) at patient's floor/unit and/or counseling patient: Coding Level of Care Code 46318 INT INP/OBS CARE 3/75MIN Diagnoses Alcohol withdrawal syndrome F10.939 Hematemesis K92.0 High anion gap metabolic acidosis E87.29
--- NOTE | 2022-02-17 20:13 | CT Scan Report ---
HEAD CT NONCONTRAST CT DOSE: 691.05 mGy.cm HISTORY: hit head, etoh TECHNIQUE: Multiaxial CT images of the head were performed without the use of intravenous contrast. A utomated exposure control was utilized for this study. A dose lowering technique was utilized adheri ng to the principles of ALARA. Comparison: Head CT 11/05/2020. Findings: The paranasal sinuses and mastoid air cells are clear. The calvarium and skull base are int act. The ventricles and sulci are within normal limits. There is no mass, hematoma, midline shift, or acute infarct. Impression: No acute intracranial abnormality. ACT 112: Negative or not required by law. Electronically signed by: Myron Mark M.D. 02/17/2022 8:11 PM
[2022-02-17 20:19] LABS: Magnesium 2.1 mg/dl (1.7-2.4)
[2022-02-17 20:25] LABS: Troponin I High Sensitivity 4.9 pg/ml (0-20)
[2022-02-17] MEDS ORDERED: LORazepam 2 MG/1 ML VIAL IV PRN ×3 (21:51)
[2022-02-17] MEDS ORDERED: diazePAM 5 MG TABLET PO ONE (21:51)
[2022-02-17] MEDS ORDERED: chlordiazePOXIDE ALCOHOL WITHDRAWL 50MG PO STA (21:51)
[2022-02-17] MEDS ORDERED: Ativan IV Alcohol Withdrawal--Active Protocol IV PRN (21:51)
[2022-02-17] MEDS: chlordiazePOXIDE HCl 25 MG CAP PO SCH (22:17)
[2022-02-17] MEDS: PANTOprazole 40 MG in SYRINGE 0 ML IV SCH (22:32)
[2022-02-17 23:34] LABS: Acetaminophen < 3 ug/ml (10-30); Salicylate < 3.0 mg/dl (3.0-30)
[2022-02-17 23:39] LABS: Base Excess VBG 1.2 mEq/L; HCO3 VBG 26 mmol/L; Oxygen Saturation VBG 97.8 %; PCO2 VBG 41 mmHg (38-50); PO2 VBG 80 mmHg; pH VBG 7.41 (7.36-7.41)
[2022-02-18] MEDS: LACTATED RINGER'S 1,000 ML IV SCH ×2 (01:16→07:55)
[2022-02-18] MEDS: chlordiazePOXIDE HCl 25 MG CAP PO SCH ×4 (05:13→22:07)
--- NOTE | 2022-02-18 07:24 | Hospitalist Progress Note ---
Date of Service February 18, 2022 Assessment & Plan (1) Alcohol withdrawal syndrome: (2) Hematemesis: (3) High anion gap metabolic acidosis: Plan: 36yo male with history of EtOH abuse presenting with EtOH withdrawal. Patient was recently sober for the last 6 months but began drinking again 6 days ago. He has been drinking at least 2 750mL bottles of vodka daily for the last 6 days (appx 34 drinks per day). His last drink was immediately prior to arrival to [facility] - 02/17/22 afternoon. He has history of complicated EtOH withdrawal with hallucinations in the past. Alcohol withdrawal syndrome: Patient is at high risk for complicated EtOH withdrawal will most likely require high doses of benzodiazepines. EtOH level = 371 -Maintain seizure precautions, aspiration precautions -Complete banana bag as ordered -received Valium 20mg in ED -Librium taper per protocol -IV Ativan per AWSS -Thiamine 100mg po daily -Folic Acid 1mg po daily Severe AUD -has had multiple inpatient D and A rehab admissions -has been on naltrexone - made him depressed. -discuss acamprosate for abstinence - interested. will discuss further Snoring -consider sleep study as outpatient. Hematemesis: Patient reports intermittent episodes of hematemesis. -Protonix 40mg IV BID -hbg stable 13.5 -Consider GI consultation if reoccurs/hbg drop High anion gap metabolic acidosis: Patient with anion gap of 18, serum HCO3 of 20. Suspect secondary to EtOH -elevated lactate, serum osmo -received IVF -continue to monitor F/E/N - heart healthy diet as tolerated Ppx - Protonix 40mg IV BID Code - Full Dispo - PCU Admission and Anticipated Discharge Date Admission Date: February 17, 2022 Supervising Physician Co-Signing Physician Notes Resident Physician Supervision Note: I independently interviewed and examined the patient and verified the rodriguez history and physical, reviewed labs and image studies and agree with resident fi ndings and care plan. Subjective Patient seen at bedside, calm comfortable cooperative. Talking on phone. Per patient he has been sober for 6 months, lives with fiance, parents live nearby everyone else does not drink. Patient has hiding places around house for his alcohol. States last week he relapsed into drinking. 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 Unfortunately [place] an alcohol store. At this time his last auditory hallucination was last night, doing well on valium taper only required 1 dose ativan overnight. Patient describes normal appetite, no SOB nausea vomitting headache CP abd pain normal BM. Patient feels he has adequate support to stop drinking, is very motivated to stop drinking. Review of Systems Review of Systems: All systems reviewed & are unremarkable except as noted in HPI & below Physical Exam Constitutional: WD/WN, vitals as above Eyes: PERRL, conjunctivae normal, anicteric sclerae ENMT: external ear and nose normal, oropharynx normal Neck: trachea midline, no thyromegaly Respiratory: normal respiratory effort, lungs clear to auscultation Cardiovascular: Rate/Rhythm: + tachycardic Gastrointestinal (Abdomen): Inspection/Auscultation: abdomen normal to inspection Percussion/Palpation: + abdomen tender (RUQ, mild) and abdomen soft Skin: no rashes, warm and dry no tremors noted Results & Data Results & Data ([facility]) Vital Signs (Past 12 Hours) Vital Signs Temp Pulse Pulse Resp BP BP BP 02/18/22 03:03 36.4 C L 99 H 18 117/87 02/17/22 22:50 118 H 02/17/22 23:29 36.6 C 121 H 18 131/95 02/17/22 21:59 36.6 C 119 H 20 138/89 02/17/22 21:00 37.1 C 129 H 18 142/89 H 02/17/22 21:04 123 H 18 02/17/22 20:30 121 H 18 02/17/22 20:30 131/94 02/17/22 20:09 124 H 13 02/17/22 20:09 159/100 H 02/17/22 20:07 129 H 13 02/17/22 20:01 36.8 C 124 H 16 159/100 H 02/17/22 19:30 117 H 17 140/94 02/17/22 19:36 118 H 18 140/94 Pulse Ox O2 Del Method 02/18/22 03:03 96 Room Air 02/17/22 22:50 02/17/22 23:29 96 Room Air 02/17/22 21:59 97 Room Air 02/17/22 21:00 96 Room Air 02/17/22 21:04 97 Room Air 02/17/22 20:30 97 02/17/22 20:30 02/17/22 20:09 93 02/17/22 20:09 02/17/22 20:07 96 02/17/22 20:01 95 Room Air 02/17/22 19:30 97 Room Air 02/17/22 19:36 97 Room Air Resident Activity Tracking Resident Involvement: Resident Care Provided Care Provided: Adult Hospital Medicine
[2022-02-18] MEDS: THIAMINE HCL 100 MG in SYRINGE 9 ML IV SCH (07:56)
[2022-02-18] MEDS: FOLIC ACID 1 MG in SYRINGE 9.8 ML IV SCH (07:56)
[2022-02-18] MEDS: PANTOprazole 40 MG in SYRINGE 0 ML IV SCH ×2 (07:56→22:07)
--- NOTE | 2022-02-18 08:06 | Electrocardiogram Report ---
Test Reason : Blood Pressure : / mmHG Vent. Rate : 137 BPM Atrial Rate : 137 BPM P-R Int : 132 ms QRS Dur : 084 ms QT Int : 298 ms P-R-T Axes : 056 058 011 degrees QTc Int : 449 ms Sinus tachycardia Otherwise normal ECG When compared with ECG of 05-NOV-2020 14:58, No significant change was found Confirmed by Luke Lyle ([id number]) on 02/18/2022 8:05:57 AM Referred By: REFERRED SELF Confirmed By:Luke Lyle
[2022-02-18 08:34] LABS: Albumin Level 3.8 gm/dl (3.4-5.0); BUN Creatinine Ratio 9.8 (10-20); Bilirubin Direct 0.1 mg/dl (0-0.2); Bilirubin,Total 0.6 mg/dl (0.2-1.0); Calcium 7.8 mg/dl (8.5-10.1); Creatinine Clr Calc Pharmacy 154.6 ml/min; Est GFR (African American) 130.9 ml/min; Potassium 3.6 mmol/L (3.5-5.1); Total Protein 6.4 gm/dl (6.0-8.3)
[2022-02-18 08:45] LABS: Hematocrit (blood only) 39.2 % (40.1-51.0); Hemoglobin 13.4 g/dl (14.0-18.0); Mean Corpuscular Hemoglobin 30.1 pg (25.0-34.0); Mean Corpuscular Hgb Conc 34.2 g/dL (32.0-36.0); Mean Corpuscular Volume 88.1 fL (80.0-100.0); Mean Platelet Volume 8.3 fL (9.4-12.4); Platelet Count 290 K/uL (130-400); RDW Standard Deviation 42.4 fL (36.4-46.3); Red Blood Count 4.45 M/uL (4.63-6.08); White Blood Count 5.32 K/ul (4.8-10.8)
[2022-02-18] MEDS ORDERED: LORazepam 2 MG/1 ML VIAL IV STA (13:53)
[2022-02-18 15:11] LABS: Hematocrit (blood only) 38.3 % (40.1-51.0); Hemoglobin 13.5 g/dl (14.0-18.0)
--- NOTE | 2022-02-19 06:49 | Hospitalist Progress Note ---
Date of Service February 19, 2022 Assessment & Plan (1) Alcohol withdrawal syndrome: (2) Hematemesis: (3) High anion gap metabolic acidosis: Plan: 36yo male with history of EtOH abuse presenting with EtOH withdrawal. Patient was recently sober for the last 6 months but began drinking again 6 days ago. He has been drinking at least 2 750mL bottles of vodka daily for the last 6 days (appx 34 drinks per day). His last drink was immediately prior to arrival to [facility] - 02/17/22 afternoon. He has history of complicated EtOH withdrawal with hallucinations in the past. Alcohol withdrawal syndrome: Patient is at high risk for complicated EtOH withdrawal will most likely require high doses of benzodiazepines. EtOH level = 371 -Maintain seizure precautions, aspiration precautions -Complete banana bag as ordered -received Valium 20mg in ED -Librium taper per protocol -IV Ativan per AWSS -Thiamine 100mg po daily -Folic Acid 1mg po daily Severe AUD -has had multiple inpatient D and A rehab admissions -has been on naltrexone - made him depressed. -discuss acamprosate for abstinence - interested. will discuss further Snoring -consider sleep study as outpatient. Hematemesis: Patient reports intermittent episodes of hematemesis. -Protonix 40mg IV BID -hbg stable 13.5 -Consider GI consultation if reoccurs/hbg drop High anion gap metabolic acidosis: Patient with anion gap of 18, serum HCO3 of 20. Suspect secondary to EtOH -elevated lactate, serum osmo -received IVF -continue to monitor F/E/N - heart healthy diet as tolerated Ppx - Protonix 40mg IV BID Code - Full Dispo - PCU Admission and Anticipated Discharge Date Admission Date: February 17, 2022 Results & Data Results & Data ([facility]) Vital Signs (Past 12 Hours) Vital Signs Temp Pulse Pulse Resp BP Pulse Ox O2 Del Method 02/19/22 03:05 36.3 C L 78 18 117/78 98 Room Air 02/19/22 00:17 85 02/18/22 22:17 36.5 C 89 18 145/80 H 98 Room Air 02/18/22 19:51 37.2 C 86 20 127/82 98 Room Air
[2022-02-19 07:03] LABS: Hematocrit (blood only) 38.6 % (40.1-51.0); Hemoglobin 13.8 g/dl (14.0-18.0); Mean Corpuscular Hemoglobin 31.2 pg (25.0-34.0); Mean Corpuscular Hgb Conc 35.8 g/dL (32.0-36.0); Mean Corpuscular Volume 87.3 fL (80.0-100.0); Mean Platelet Volume 8.8 fL (9.4-12.4); Platelet Count 280 K/uL (130-400); RDW Coefficient of Variation 12.7 % (11.5-14.5); RDW Standard Deviation 40.4 fL (36.4-46.3); Red Blood Count 4.42 M/uL (4.63-6.08); White Blood Count 6.14 K/ul (4.8-10.8)
[2022-02-19] MEDS: chlordiazePOXIDE HCl 25 MG CAP PO SCH ×2 (07:33→13:46)
[2022-02-19 07:37] LABS: Albumin Globulin Ratio 1.7 (0.9-2); Albumin Level 3.9 gm/dl (3.4-5.0); BUN Creatinine Ratio 11.1 (10-20); Bilirubin,Total 0.9 mg/dl (0.2-1.0); Calcium 8.8 mg/dl (8.5-10.1); Creatinine Clr Calc Pharmacy 128.1 ml/min; Est GFR (African American) 112.3 ml/min; Est GFR (Non-African American) 96.9 ml/min; Globulin 2.3 gm/dl (2.5-4.0); Potassium 3.3 mmol/L (3.5-5.1); Total Protein 6.2 gm/dl (6.0-8.3)
[2022-02-19] MEDS: THIAMINE HCL 100 MG in SYRINGE 9 ML IV SCH (08:29)
[2022-02-19] MEDS: FOLIC ACID 1 MG in SYRINGE 9.8 ML IV SCH (08:29)
[2022-02-19] MEDS: PANTOprazole 40 MG in SYRINGE 0 ML IV SCH (08:30)
--- NOTE | 2022-02-19 17:03 | Discharge Summary ---
Date of Service February 19, 2022 Admission HPI Per Admitting Provider Chino Sanches is a 36yo male with history of EtOH abuse and depression presenting with EtOH withdrawal. Patient has been drinking intermittently for the last 13 years. He has been to rehabilitation 8 times in the past. Patient has been sober for the last 6 months but began drinking again 6 days ago. He has been drinking at least 2 bottles of vodka daily (750 mL x 2 bottles, approximately 34 EtOH drinks daily). His last drink was immediately prior to arrival - two beers. Patient reports feeling shaking, sweaty and confused at times throughout the last week. Also with some chest discomfort, nausea, vomiting with some hematemesis reported as well as diarrhea. He reports this episode of drinking is heavier in the past. He reports feeling very depressed when he is drinking. No active SI or HI. No additional complaints at this time. In the ER he is tachycardic, hypertensive. ER Course: Protonix drip Ativan 2mg IV NSS x 1L Banana bag ordered Valium 20mg po ordered Admission Exam Per Admitting Provider General: patient tearful during exam, restless, AA&O x 4, answering questions appropriately Skin: warm, dry, intact, no rashes or lesions HEENT: NC/AT, PERRL, EOMI, anicteric sclera, conjunctiva without injection, external ear normal to inspection and nontender, nares patent, moist mucus membranes, dentition intact, no oropharyngeal lesions, neck supple, trachea midline, no LAD, no thyromegaly, no JVD Heart: +S1/S2, regular, tachycardic, no m/r/g Lungs: equal air entry bilaterally, no rales/rhonchi/wheezes Abd: +BS, soft, ND, tenderness of RUQ without rebound or guarding, no masses/organomegaly/ascites Ext: warm, 2+ pulses in UE/LE bilaterally, no clubbing/cyanosis or edema Neuro: nonfocal, patient AA&O x 4, speech intact, no facial droop, moving all extremities on command with equal strength 5/5 Principal Diagnosis Alcohol Withdrawal Discharge Exam Constitutional: WD/WN, vitals as above Eyes: PERRL, conjunctivae normal, anicteric sclerae ENMT: external ear and nose normal, oropharynx normal Neck: trachea midline, no thyromegaly Respiratory: normal respiratory effort, lungs clear to auscultation Cardiovascular: Rate/Rhythm: RRR Gastrointestinal (Abdomen): Inspection/Auscultation: abdomen normal to inspection Percussion/Palpation: + abdomen tender (RUQ, mild) and abdomen soft Skin: no rashes, warm and dry no tremors noted Discharge Data Allergies Allergy/AdvReac Type Severity Reaction Status Date / Time No Known Allergies Allergy Verified 11/05/20 21:13 Consultations 02/17/22 19:26 ED Decision to Admit Stat Ordered Studies 02/17/22 19:20 CT head/brain wo con Stat Hospital Course (1) Alcohol withdrawal syndrome: 36yo male with history of EtOH abuse presenting with EtOH withdrawal. Patient was recently sober for the last 6 months but began drinking again 6 days ago. He has been drinking at least 2 750mL bottles of vodka daily for the last 6 days (appx 34 drinks per day). His last drink was immediately prior to arrival to the ER - 02/17/22 afternoon. He has history of complicated EtOH withdrawal with hallucinations in the past. Alcohol withdrawal syndrome: EtOH level = 371. For concern of high risk for complicated EtOH withdrawal kept on high doses of benzodiazepines. -Maintained seizure precautions, aspiration precautions. Given MVI. -received Valium 20mg in ED followed by Librium taper ordered, tolerated well -discharged home on librium taper Severe Alcohol Use Disorder -has had multiple inpatient drug and alcohol rehab admissions -has been on naltrexone - made him depressed. -discuss acamprosate for abstinence - interested. consider use in outpatient Snoring -consider sleep study as outpatient. Hematemesis: Patient reports intermittent episodes of hematemesis. -No episode here. -hbg stable 13.5 -outpatient evaluation recommended. (2) Hematemesis: (3) High anion gap metabolic acidosis: Total Time Total Time Spent Total Time Spent (In Minutes): see attending attestation Discharge Plan Discharge Items Patient Disposition: Home - Self-Care Reason For Visit: ETOH WITHDRAWAL Discharge Diagnosis: EtOH withdrawal Activity: Resume your previous activity Non-emergency contact: Primary Care Provider Call non-emergency contact if: you have any medication questions, your symptoms worsen and your pain is concerning for you Follow-up/Referrals: Silvia Olvera [Hospitalist] - PCP,NO [Primary Care Provider] - 02/28/22 3:45 pm (Dr Olvera on Feb 28 @ 345 pm) Diet: Regular Addtl Attending Provider Instructions: You were admitted to the hospital for alcohol withdrawal. You were treated with a librium taper, and your symptoms improved. Please complete your librium taper and follow up with outpatient alcohol rehabillitation services. A discharge summary will be sent to your primary care physician to ensure continuity of care. Please bring this discharge summary with you to your next office appointment so that your provider can review it at that time. Follow-up appointments: Make a follow-up appointment with your PCP within the next week. It is very important that you follow up with them shortly after discharge from the hospital. Keep all your follow-up appointments as already scheduled. If you cannot make an appointment, notify your provider. Medications: Your medication list has been reviewed and reconciled upon discharge to ensure accuracy and continuity of care. An updated list of all your medications is included with your hospital discharge paperwork. Please review this list closely, and make note of any changes. * We sent a new medication called Librium to your pharmacy. Please follow the taper as instructed Take your medications as instructed; do not skip a dose of your medicines. Make sure all of your doctors know every medicine you are taking (including [id number]-[id number] medicines, vitamins, and supplements). Call your primary care provider before taking any new medicines (including [id number]-[id number] medicines, vitamins, and supplements), because some of these may interact with your current medications, or may make your symptoms worse. Tell your primary care provider if you cannot afford your medications. CONTACT YOUR PRIMARY CARE PROVIDER if you experience any of the following: Increased sedation, confusion Fever, hallucinations Difficulty following your treatment plan, or difficulty taking medications CALL 911 OR GO TO THE EMERGENCY DEPARTMENT if you experience any of the following: Sudden, severe abdominal pain or nausea/vomiting Severe chest pain, or chest pain that radiates (moves) to your jaw or arm Sudden, severe shortness of breath or difficulty breathing Thank you for allowing us to participate in your care. Pending Studies at Discharge: No Stand-Alone Forms: My [employer], Smoking Cessation Medications and DC Order Prescriptions: New chlordiazepoxide HCl 25 mg capsule See Rx Instructions .ROUTE .COMPLEX Qty: 7 0RF Rx Instructions: 25 mg orally three times a day for 1 day then 25mgs orally two times a day for 1 day, then 25mgs once a day for one day. then stop No Action No Known Home Medications Discharge Orders: Discharge Order (Routine); Ordered 02/19/22 Ordered By: Reba Palomo Admission Data Admit Date/Time: 02/17/22 19:58 Attending Provider: Reba Palomo Admit Provider: Marquita Camacho Primary Care Provider: PCP,NO Other Providers: Marquita Camacho Other Interventions: Discharge Summary Assessment (RN) Last Done: 02/19/22 17:15 Supervising Physician Co-Signing Physician Notes Resident Physician Supervision Note: I independently interviewed and examined the patient and verified the rodriguez history and physical, reviewed labs and image studies and agree with resident findings and care plan. Resident Activity Tracking Resident Involvement: Resident Care Provided Care Provided: Adult Hospital Medicine
[2022-02-20 11:22] LABS: Marijuana Quant, GCMS Urine 531 ng/mL (<5)
== END 2022-02-19 17:45 | disposition home or self-care (01) | DRG 897 ==
LOC: ED 17:51 → 2S 19:58 → SUATTDRO 19:58 → 2S 21:04

== ENCOUNTER 2022-09-06 09:27 | Inpatient (IN) ==
[2022-09-06] MEDS ORDERED: THIAMINE HCL 100 MG, FOLIC ACID 1 MG in SODIUM CHLORIDE 0.9% 1000ML 1,000 ML IV STA (09:57)
[2022-09-06] MEDS ORDERED: CEROVITE ADV FORMULA TAB PO STA (09:57)
--- NOTE | 2022-09-06 10:12 | Emergency Department Note ---
Impression & Plan Alcohol withdrawal syndrome, Chest pain ED Provider Note Provider: Asad Anna MD DATE OF SERVICE: 09/06/2022 CHIEF COMPLAINT: Alcohol withdrawal, chest pressure HISTORY OF PRESENT ILLNESS: Patient is a 36-year-old gentleman history of alcohol abuse and depression presenting here today reporting overnight and today developed chest pressure as well as some shakes and tremors and thinks he is in alcohol withdrawal. Last drink was yesterday afternoon. Heavy use of liquor and beer over the past 3 days. History of alcohol drawl in the past but no seizures. Denies confusion/hallucinations at this time. Denies trauma. Denies abdominal pain but does report some episodes of nausea and vomiting earlier today. Denies current drug use. No other pain besides his chest pressure noted. PAST MEDICAL HISTORY: As noted above MEDICATIONS: Reviewed home medications not currently taking Lexapro or buspirone SOCIAL HISTORY: Occasionally smokes, history of alcohol abuse PHYSICAL EXAM: GENERAL: alert and oriented sitting on the stretcher. Mildly diaphoretic. Head: normocephalic and atraumatic EYES: No injection, discharge or icterus. NECK: Trachea midline. ENT: Mucous membranes pink and moist. Some tongue fasciculations are noted. LUNGS: Airway patent. No retractions. Breath sounds clear HEART: Regular rate and rhythm. No chest wall tenderness ABDOMEN: Soft and non-tender, without guarding or rebound. SKIN: Acyanotic, warm, diaphoretic EXTREMITIES: Without swelling, tenderness or deformity however with some hand tremor noted. NEUROLOGICAL: No focal deficits. No aphasia. No facial droop or slurred speech. Ambulatory. EK bpm normal sinus rhythm with sinus arrhythmia. No PVC. No acute ST segment elevation or depression with QTc of 442. CONTINUOUS CARDIAC MONITORING: was ordered and showed a heart rate of 90s-100s bpm in normal sinus rhythm to sinus tachycardia with occasional sinus arrhythmia Patient's laboratory studies and imaging reviewed. Differential includes Cardiac ischemia, aortic dissection, pulmonary embolism, pneumothorax, pneumonia, pericarditis, myocarditis, esophageal rupture, GERD, cholecystitis, pancreatitis, musculoskeletal, as well as other pathologies. IMPRESSION/MEDICAL DECISION MAKING: Patient history of significant abuse reports now experiencing some chest pressure and last drank about 18 hours ago. Alcohol undetectable now. No significant cytosis or anemia. No severe electrolyte abnormalities noted. EKG without significant acute findings. Given banana bag here for some hydration. Given several doses of Valium for diffuse tremors and feeling tongue fasciculations. Not hallucinations at this time but from records it appears he has had these in the past. No seizures reported or history of seizures repor jailyn. Patient denies any trauma or significant pain on exam and no believe any additional imaging beyond a chest x-ray given his chest pressure complaint. Chest x-ray report reviewed and reassuring. Blood without evidence of severe electrolyte abnormalities, cardiac injury, pancreatitis, or severe thrombocytopenia. Reassuring and patient symptoms are improving multiple doses of Valium at this time to help with his withdrawal symptoms. Desires rehab. Given his history of hallucinations will bring in for medical detoxification with hopeful plan for rehab once he is through the period of withdrawal. Discussed with the hospitalist. Patient and later his father at bedside agreed with this plan. DIAGNOSIS: Alcohol withdrawal, chest pressure DISPOSITION: Hospitalist will evaluate Patient was agreeable with this plan. Critical Care I have personally spent 33 minutes of critical care time in the direct management of this patient. This includes bedside care, interpretation of diagnostic studies, and testing, discussion with consultants, patient, and [facility] ly members, and other required patient management activities. These 33 minutes is in excess of all separately billable procedures. Past Med/Surg History Medical History Alcohol intoxication Depression Hypoxia Lactic acidosis Transaminitis Surgical History [place] teeth extracted Family History Other No significant family history Social History Smoking Status: Current every day smoker Tobacco Type: Cigarettes Second Hand Exposure: Yes; Do You Dip or Chew Tobacco: Yes; Hx Alcohol Use: Yes Alcohol type: hard liquor Hx Substance Use: Yes Non-Prescribed Medications: Heroin Preferred Language: Mauritanian Communication Ability: Effective Stone Splitter Required: No Beliefs That Will Affect Care: None Current Living Situation: Spouse How many Children do You have: 0 Feels Safe at Home: Yes Assistive Devices: None Allergies Allergies Allergy/AdvReac Type Severity Reaction Status Date / Time No Known Allergies Allergy Verified 09/04/22 01:54 Home Meds Home Medications Medication Instructions Recorded Confirmed buspirone 10 mg tablet 10 mg PO TID 09/03/22 09/04/22 escitalopram oxalate 20 mg tablet 20 mg PO DAILY 09/03/22 09/04/22 Results & Data (ED) Vital Signs Vital Signs - 24 hr 09/06/22 09:43 09/06/22 10:19 09/06/22 10:19 Temperature 36.8 C Temperature Source Oral Pulse Rate 103 H 96 H Pulse Rate [Right] 100 H Respiratory Rate 20 17 21 Respiratory Effort / Characteristics Non-Labored Spontaneous Non-Labored Respiratory Depth Normal Normal Respiratory Pattern Regular Blood Pressure 141/86 H Blood Pressure [Right Arm] 160/124 H Blood Pressure Mean 104 Blood Pressure Mean [Right Arm] 136 Pulse Oximetry 99 97 98 Oxygen Delivery Method Room Air Room Air Room Air Sepsis Recent Fever Within 48 Hours No Sepsis New/Unexplained Change in Mental Status N/A Sepsis Action Taken by Nursing No Action Required 09/06/22 10:25 09/06/22 12:09 Temperature Temperature Source Pulse Rate 97 H Pulse Rate [Right] 92 H Respiratory Rate 18 Respiratory Effort / Characteristics Non-Labored Respiratory Depth Normal Respiratory Pattern Blood Pressure Blood Pressure [Right Arm] 154/97 H Blood Pressure Mean Blood Pressure Mean [Right Arm] 116 Pulse Oximetry 100 Oxygen Delivery Method Room Air Sepsis Recent Fever Within 48 Hours Sepsis New/Unexplained Change in Mental Status Sepsis Action Taken by Nursing Laboratory Data 09/06/22 10:06 09/06/22 10:06 Lab Results 09/06/22 09/06/22 09/06/22 Range/Units 10:06 10:06 10:06 WBC 8.02 (4.8-10.8) K/ul RBC 4.88 (4.70-6.10) M/uL Hgb 15.5 (14.0-18.0) g/dl Hct 44.0 (42.0-52.0) % MCV 90.2 (80.0-100.0) fL MCH 31.8 (25.0-34.0) pg MCHC 35.2 (32.0-36.0) g/dL RDW Std Deviation 46.1 (36.4-46.3) fL RDW Coeff of Bethany 13.8 (11.5-14.5) % Plt Count 416 H (130-400) K/uL MPV 8.7 L (9.4-12.4) fL Immature Gran % (Auto) 0.2 % Neut % (Auto) 75.6 % Lymph % (Auto) 17.1 % [place] % (Auto) 6.0 % Eos % (Auto) 0.5 % Baso % (Auto) 0.6 % Neut # (Auto) 6.06 (1.40-6.50) K/uL Lymph # (Auto) 1.37 (1.2-3.4) K/uL [place] # (Auto) 0.48 (0.11-0.59) K/uL Eos # (Auto) 0.04 (0-0.50) K/uL Baso # (Auto) 0.05 (0-0.2) K/uL Immature Gran # (Auto) 0.02 (0.01-0.20) K/uL PT 10.6 (9.0-12.0) Seconds INR 1.0 (0.9-1.1) Sodium 142 (136-145) mmol/L Potassium 3.5 (3.5-5.1) mmol/L Chloride 104 (98-107) mmol/L Carbon Dioxide 24 (21-32) mmol/L Anion Gap 14 H (3-11) BUN 10 (6-23) mg/dl Creatinine 0.99 (0.6-1.4) mg/dl Est Cr Clr Drug Dosing 121.0 ml/min Est GFR ( Amer) 112.3 ml/min Est GFR (Non-Af Amer) 96.9 ml/min BUN/Creatinine Ratio 10.1 (10-20) Glucose 80 (70-99(Fasting)) mg/dl Calcium 9.2 (8.6-10.3) mg/dl Magnesium 1.8 (1.7-2.4) mg/dl Total Bilirubin 0.6 (0.2-1.0) mg/dl AST 24 (13-39) U/L ALT 28 (7-52) U/L Alkaline Phosphatase 51 (34-104) U/L Troponin I High Sens 4.1 (0-20) pg/ml Total Protein 7.3 (6.0-8.3) gm/dl Albumin 4.4 (3.4-5.0) gm/dl Globulin 2.9 (2.5-4.0) gm/dl Albumin/Globulin Ratio 1.5 (0.9-2) Lipase 27 (11-82) U/L Salicylates (3.0-30) mg/dl Acetaminophen (10-30) ug/ml Ethyl Alcohol mg/dL (<10.0) mg/dl SARS-CoV-2, RNA, NAAT (NEGATIVE) 09/06/22 09/06/22 09/06/22 Range/Units 10:06 10:06 10:45 WBC (4.8-10.8) K/ul RBC (4.70-6.10) M/uL Hgb (14.0-18.0) g/dl Hct (42.0-52.0) % MCV (80.0-100.0) fL MCH (25.0-34.0) pg MCHC (32.0-36.0) g/dL RDW Std Deviation (36.4-46.3) fL RDW Coeff of Beth[place] (11.5-14.5) % Plt Count (130-400) K/uL MPV (9.4-12.4) fL Immature Gran % (Auto) % Neut % (Auto) % Lymph % (Auto) % [place] % (Auto) % Eos % (Auto) % Baso % (Auto) % Neut # (Auto) (1.40-6.50) K/uL Lymph # (Auto) (1.2-3.4) K/uL [place] # (Auto) (0.11-0.59) K/uL Eos # (Auto) (0-0.50) K/uL Baso # (Auto) (0-0.2) K/uL Immature Gran # (Auto) (0.01-0.20) K/uL PT (9.0-12.0) Seconds INR (0.9-1.1) Sodium (136-145) mmol/L Potassium (3.5-5.1) mmol/L Chloride (98-107) mmol/L Carbon Dioxide (21-32) mmol/L Anion Gap (3-11) BUN (6-23) mg/dl Creatinine (0.6-1.4) mg/dl Est Cr Clr Drug Dosing ml/min Est GFR ( Amer) ml/min Est GFR (Non-Af Amer) ml/min BUN/Creatinine Ratio (10-20) Glucose (70-99(Fasting)) mg/dl Calcium (8.6-10.3) mg/dl Magnesium (1.7-2.4) mg/dl Total Bilirubin (0.2-1.0) mg/dl AST (13-39) U/L ALT (7-52) U/L Alkaline Phosphatase (34-104) U/L Troponin I High Sens (0-20) pg/ml Total Protein (6.0-8.3) gm/dl Albumin (3.4-5.0) gm/dl Globulin (2.5-4.0) gm/dl Albumin/Globulin Ratio (0.9-2) Lipase (11-82) U/L Salicylates < 3.0 L (3.0-30) mg/dl Acetaminophen < 3 L (10-30) ug/ml Ethyl Alcohol mg/dL < 10.0 (<10.0) mg/dl SARS-CoV-2, RNA, NAAT NEGATIVE (NEGATIVE) Administered Medications Discontinued Medications Diazepam (Diazepam 5 Mg/Ml Inj 10ml Vial) 10 mg IV NOW STA Stop: 09/06/22 10:09 Last Admin: 09/06/22 10:36 Dose: 10 mg Documented By: ZEE Diazepam (Diazepam 5 Mg/Ml Inj 10ml Vial) 10 mg IV NOW STA Stop: 09/06/22 11:30 Last Admin: 09/06/22 11:45 Dose: 10 mg Documented By: ZEE Thiamine HCl 100 mg/ Folic (Acid 1 mg/ Sodium Chloride) 1,001.2 mls @ 500 mls/hr IV .Q2H1M STA; Protocol Stop: 09/06/22 11:57 Last Admin: 09/06/22 10:36 Dose: 500 mls/hr Documented By: ZEE Multivitamins/Minerals (Cerovite Adv Formula Tab) 1 tab PO ONE STA Stop: 09/06/22 09:58 Last Admin: 09/06/22 11:29 Dose: 1 tab Documented By: KT Ondansetron HCl (Ondansetron Inj 2 Mg/Ml 2 Ml Vial) 4 mg IV NOW STA Stop: 09/06/22 11:36 Last Admin: 09/06/22 11:45 Dose: 4 mg Documented By: NRB Imaging Data Radiologist's Impression: Chest X-Ray 09/06/22 09:57 SINGLE VIEW CHEST CLINICAL HISTORY: Atypical chest pain. FINDINGS: An AP, portable, upright chest radiograph is compared to chest x-ray and chest CT dated 11/05/2020. The cardiomediastinal silhouette is unremarkable. The lungs and pleural spaces are clear. No pneumothorax is seen. There are chronic/healed right-sided rib fractures. IMPRESSION: No active disease in the chest. ACT 112: Negative or not required by law. Electronically signed by: Jorge Odell M.D. 09/06/2022 10:54 AM Discharge Plan Visit Data Chief Complaint: Alcohol Withdrawal Stated Complaint: ALCOHOL WITHDRAWAL ED Provider: Asad Anna Discharge Problem: Alcohol withdrawal syndrome, Chest pain Patient Disposition: Being Evaluated by Hospitalist Forms Stand Alone Forms: [facility], Suicide Prevention Resources Prescriptions Prescriptions: No Action escitalopram oxalate 20 mg tablet 20 mg PO DAILY buspirone 10 mg tablet 10 mg PO TID Referrals Referrals: Bay Noriega MD, PhD [Primary Care Provider] -
--- NOTE | 2022-09-06 10:55 | XRay Report ---
SINGLE VIEW CHEST CLINICAL HISTORY: Atypical chest pain. FINDINGS: An AP, portable, upright chest radiograph is compared to chest x-ray and chest CT dated 10/11. The cardiomediastinal silhouette is unremarkable. The lungs and pleural spaces are clear. No pneumothorax is seen. There are chronic/healed right-sided rib fractures. IMPRESSION: No active disease in the chest. ACT 112: Negative or not required by law. Electronically signed by: Jorge Odell M.D. 09/06/2022 10:54 AM
[2022-09-06 11:05] LABS: Basophils # (auto) 0.05 K/uL (0-0.2); Basophils % (auto) 0.6 %; Eosinophils # (auto) 0.04 K/uL (0-0.50); Eosinophils % (auto) 0.5 %; Hemoglobin 15.5 g/dl (14.0-18.0); Immature Granulocytes # (auto) 0.02 K/uL (0.01-0.20); Immature Granulocytes % (auto) 0.2 %; Lymphocytes # (auto) 1.37 K/uL (1.2-3.4); Lymphocytes % (auto) 17.1 %; Mean Corpuscular Hemoglobin 31.8 pg (25.0-34.0); Mean Corpuscular Hgb Conc 35.2 g/dL (32.0-36.0); Mean Corpuscular Volume 90.2 fL (80.0-100.0); Mean Platelet Volume 8.7 fL (9.4-12.4); Monocytes # (auto) 0.48 K/uL (0.11-0.59); Neutrophils # (auto) 6.06 K/uL (1.40-6.50); Neutrophils % (auto) 75.6 %; Platelet Count 416 K/uL (130-400); RDW Coefficient of Variation 13.8 % (11.5-14.5); RDW Standard Deviation 46.1 fL (36.4-46.3); Red Blood Count 4.88 M/uL (4.70-6.10); White Blood Count 8.02 K/ul (4.8-10.8)
[2022-09-06 11:26] LABS: Albumin Globulin Ratio 1.5 (0.9-2); Albumin Level 4.4 gm/dl (3.4-5.0); BUN Creatinine Ratio 10.1 (10-20); Bilirubin,Total 0.6 mg/dl (0.2-1.0); Calcium 9.2 mg/dl (8.6-10.3); Est GFR (African American) 112.3 ml/min; Est GFR (Non-African American) 96.9 ml/min; Globulin 2.9 gm/dl (2.5-4.0); Magnesium 1.8 mg/dl (1.7-2.4); Potassium 3.5 mmol/L (3.5-5.1); Total Protein 7.3 gm/dl (6.0-8.3)
[2022-09-06 11:31] LABS: Prothrombin Time 10.6 Seconds (9.0-12.0)
[2022-09-06 11:32] LABS: Troponin I High Sensitivity 4.1 pg/ml (0-20)
[2022-09-06] MEDS ORDERED: ONDANSETRON INJ 2 MG/ML 2 ML VIAL IV STA (11:35)
[2022-09-06 11:37] LABS: Acetaminophen < 3 ug/ml (10-30); Salicylate < 3.0 mg/dl (3.0-30)
--- NOTE | 2022-09-06 12:41 | History & Physical Report ---
Date of Service September 06, 2022 Assessment & Plan (1) Alcohol withdrawal syndrome: Plan: Last drink yesterday afternoon PAWSS 3 points - average risk, although given prior hospitalization and multiple withdrawals managed at home suspect he will to well on PRN dosing alone. He also fluctuates his heavy drinking regularly giving a better prognosis. Lorazepam 1-3mg IV PRN per AWSS (2) Chest pain: Plan: Suspect related to alcohol withdrawal but given not present in this magnitude previously with significant tachycardia will get d-dimer and if raised will get CT for PE. Repeat troponin for completeness although low suspicion this is cardiac Plan VTE Prophylaxis - deferred pending d-dimer workup as above Diet - regular Disposition - admit to med/surg Admission and Anticipated Discharge Date Admission Date: September 06, 2022 History of Present Illness Primary Care Provider: Bay Noriega MD, PhD Chino Sanches is a 36 year old male who presents to the ER due to concerns for alcohol withdrawal and chest pain. He reports multiple episodes of alcohol withdrawal previously most of which he stays home and just tries to get through it himself. However on this occasion he is also having chest pain with trouble breathing therefore came in to make sure his heart was ok. Last alcohol drink was yesterday afternoon. Drinking erratically (will go on heavy drinking epis odes) but up to 2 bottles of vodka a day. Chest pain started around 8-9am. Improved with diazepam but still present. No worse on palpation, exertion or position. Worse on inspiration. He reports possibly having chest pain with other alcohol withdrawals but never to this magnitude. No history of alcohol withdrawal seizures. No hallucinations. Main symptoms of anxiety, tremors and mind racing. Positive review of systems - Diarrhea this morning. Not eaten anything in last 3 days because he has been drinking. Allergies Allergy/AdvReac Type Severity Reaction Status Date / Time No Known Allergies Allergy Verified 09/06/22 13:27 Home Medications Medication Instructions Recorded Confirmed Type buspirone 10 mg tablet 0 mg PO TID 09/03/22 09/06/22 History escitalopram oxalate 20 mg tablet 0 mg PO DAILY 09/03/22 09/06/22 History Past Med/Surg History Medical History Alcohol intoxication Depression Hypoxia Lactic acidosis Transaminitis Surgical History Fountain teeth extracted Family History Other No significant family history Social History Smoking Status: Current some day smoker Tobacco Type: Cigarettes Second Hand Exposure: Yes; Do You Dip or Chew Tobacco: Yes; Hx Alcohol Use: Yes Alcohol type: beer and hard liquor Hx Substance Use: No Preferred Language: Slovak Communication Ability: Effective Rectifying Operator Required: No Beliefs That Will Affect Care: None Current Living Situation: Other Current Living Situation Comment: reports currently residing with parents How many Children do You have: 0 Other Information That Helps Us Care for You: No Feels Safe at Home: Yes Safety Concerns: Feels Safe At This Time Assistive Devices: None Review of Systems Review of Systems: All systems reviewed & are unremarkable except as noted in HPI & below Physical Exam Constitutional: WD/WN, vitals as above ENMT: external ear and nose normal, oropharynx normal Respiratory: normal respiratory effort, lungs clear to auscultation Cardiovascular: Rate/Rhythm: regular rhythm and + tachycardic Heart Sounds: no murmur Extremities: normal capillary refill; no calf tenderness and no pedal edema Gastrointestinal (Abdomen): normal bowel sounds, soft, nontender, no hepatosplenomegaly Musculoskeletal: no cyanosis or clubbing, extremities motor strength 5/5 Skin: no rashes, warm and dry Neurologic: moves all extremities and awake; not confused Speech / Cognition: normal speech Motor/Sensory: + tremor (mild resting) Psychiatric: A+Ox3, euthymic affect Results & Data Results & Data Vital Signs (Past 12 Hours) Vital Signs Temp Pulse Pulse Resp BP BP Pulse Ox 09/06/22 12:09 92 H 18 154/97 H 100 09/06/22 10:25 97 H 09/06/22 10:19 96 H 21 98 09/06/22 10:19 100 H 17 160/124 H 97 09/06/22 09:43 36.8 C 103 H 20 141/86 H 99 O2 Del Method 09/06/22 12:09 Room Air 09/06/22 10:25 09/06/22 10:19 Room Air 09/06/22 10:19 Room Air 09/06/22 09:43 Room Air Laboratory Results Abnormal lab results 09/06/22 09/06/22 09/06/22 Range/Units 10:00 10:06 10:06 Plt Count 416 H (130-400) K/uL MPV 8.7 L (9.4-12.4) fL D-Dimer 1180 H* (0-500) ug/L FEU Anion Gap 14 H (3-11) Ur Specific [place] (1.000-1.030) Urine Protein (Negative) Urine Ketones (Negative) Salicylates (3.0-30) mg/dl Acetaminophen (10-30) ug/ml U Benzodiazepines Scrn (Neg) U Marijuana (THC) Screen (Neg) 09/06/22 09/06/22 09/06/22 Range/Units 10:06 16:26 16:26 Plt Count (130-400) K/uL MPV (9.4-12.4) fL D-Dimer (0-500) ug/L FEU Anion Gap (3-11) Ur Specific [place] 1.037 H (1.000-1.030) Urine Protein Trace H (Negative) Urine Ketones 3+ H (Negative) Salicylates < 3.0 L (3.0-30) mg/dl Acetaminophen < 3 L (10-30) ug/ml U Benzodiazepines Scrn Pos H (Neg) U Marijuana (THC) Screen Pos H (Neg) Diagnostic Findings SINGLE VIEW CHEST CLINICAL HISTORY: Atypical chest pain. FINDINGS: An AP, portable, upright chest radiograph is compared to chest x-ray and chest CT dated 11/05/2020. The cardiomediastinal silhouette is unremarkable. The lungs and pleural spaces are clear. No pneumothorax is seen. There are chronic/healed right-sided rib fractures. IMPRESSION: No active disease in the chest. Medications Administered ER Medications Given: Thiamine 100mg, folic acid 1mg in NSS 1L Multivitamins tab Diazepam 10mg IV Diazepam 10mg IV Ondansetron 4mg IV Diazepam 10mg IV ECG Rate (beats per minute): 93 Rhythm: normal sinus Findings: no acute ischemic change Comparison ECG Date: from (April 18, 2022) Change: no significant change Code Status & VTE Plan Code Status Full VTE Prophylaxis Plan VTE Prophylaxis will be ordered: No PG Care Time/CCT Total # of Minutes Spent Total Time Spent with Patient: Total time spent is greater than 50% in coordination of care (as documented) at patient's floor/unit and/or counseling patient: Coding Level of Care Code 36553 INT INP/OBS CARE MIN Diagnoses Alcohol withdrawal syndrome F10.939 Chest pain R07.9
[2022-09-06 14:01] LABS: D Dimer 1180 ug/L FEU (0-500)
[2022-09-06] MEDS ORDERED: Ativan IV Alcohol Withdrawal--Active Protocol IV PRN (14:39)
[2022-09-06] MEDS ORDERED: LORazepam 2 MG/1 ML VIAL IV PRN ×2 (14:39)
[2022-09-06] MEDS ORDERED: IOVERSOL 350 MG 125mL Prefilled Syringe IV ONE (14:54)
--- NOTE | 2022-09-06 15:08 | CT Scan Report ---
CT ANGIOGRAM OF THE CHEST CLINICAL HISTORY: Atypical chest pain. COMPARISON STUDY: Chest CT dated 11/05/2020. Chest x-ray dated 09/06/2022. TECHNIQUE: Following the IV administration of 119 cc of Optiray 350, CT angiogram of the chest was pe rformed from the upper abdomen to the thoracic inlet utilizing the pulmonary embolus protocol. Images are reviewed in the axial, sagittal, and coronal planes. 3-D MIPS images are created and assessed. I V contrast was administered without complication. A dose lowering technique was utilized adhering to the principles of ALARA. CT DOSE: 872.54 mGy.cm FINDINGS: Thyroid: Imaged portions of the thyroid gland are normal in size and attenuation. Thoracic aorta: The thoracic aorta is normal in caliber and demonstrates standard 3-vessel arch anato my. No dissection is seen. Pulmonary vasculature: The pulmonary trunk is normal in caliber. There are no filling defects identif ied in main, lobar, or segmental pulmonary branches to suggest pulmonary embolus. Heart: The heart is normal in size and without pericardial effusion. Lungs and pleural spaces: The lungs and pleural spaces are clear. Mediastinum: There is no mediastinal lymphadenopathy. Tabby: Clear. Axillae: There is no axillary lymphadenopathy. Upper abdomen: There is a small hiatal hernia. The liver is steatotic. Skeletal structures: No lytic or blastic bony lesions are seen. IMPRESSION: 1. There is no evidence of pulmonary embolus in the main, lobar, or segmental pulmonary arteries. 2. The lungs are clear. 3. Hepatic steatosis. ACT 112: Negative or not required by law. Electronically signed by: Jorge Odell M.D. 09/06/2022 3:05 PM
[2022-09-06 16:41] LABS: Appearance Urine Clear (Clear); Bacteria Urine Automated Negative (Negative); Bilirubin Urine Negative (Negative); Blood Urine Negative (Negative); Color Urine Yellow; Epithelial Cell Urine Auto 0-5 /lpf (0-5); Glucose Urine UA Negative (Negative); Ketones Urine 3+ (Negative); Leukocyte Esterase Urine Negative (Negative); Nitrite Urine Negative (Negative); RBC Urine Automated 0-4 /hpf (0-4); Specific Gravity Urine 1.037 (1.000-1.030); Urobilinogen Urine Negative (Negative); pH Urine 7.5 (4.5-7.5)
[2022-09-06 16:44] LABS: Protein Urine Trace (Negative)
[2022-09-06 17:09] LABS: Amphetamines+Metham, Urine Neg (Neg); Barbiturates, Urine Neg (Neg); Benzodiazepine, Urine Pos (Neg); Cocaine, Urine Neg (Neg); MDMA (Ecstacy), Urine Neg (Neg); Methadone, Urine Neg (Neg); Opiate, Urine Neg (Neg); Phencyclidine, Urine Neg (Neg)
[2022-09-06] MEDS: LORazepam 2 MG/1 ML VIAL IV PRN (18:14)
[2022-09-07] MEDS: THIAMINE HCL 100 MG TAB PO SCH (08:47)
--- NOTE | 2022-09-07 10:33 | Electrocardiogram Report ---
Test Reason : Blood Pressure : / mmHG Vent. Rate : 093 BPM Atrial Rate : 093 BPM P-R Int : 138 ms QRS Dur : 086 ms QT Int : 356 ms P-R-T Axes : 058 052 033 degrees QTc Int : 442 ms Normal sinus rhythm with sinus arrhythmia Normal ECG When compared with ECG of 18-APR-2022 06:09, No significant change was found Confirmed by Savage Vaughn ([id number]) on 09/07/2022 10:32:52 AM Referred By: REFERRED SELF Confirmed By:Savage Vaughn
[2022-09-07] MEDS: LORazepam 2 MG/1 ML VIAL IV PRN (13:08)
--- NOTE | 2022-09-07 23:58 | Hospitalist Progress Note ---
Date of Service September 07, 2022 Assessment & Plan (1) Alcohol withdrawal syndrome: Plan: Last drink yesterday afternoon PAWSS 3 points - average risk, although given prior hospitalization and multiple withdrawals managed at home suspect he will to well on PRN dosing alone. He also fluctuates his heavy drinking regularly giving a better prognosis. Lorazepam 1-3mg IV PRN per AWSS (2) Chest pain: Plan: Suspect related to alcohol withdrawal but given not present in this magnitude previously with significant tachycardia will get d-dimer and if raised will get CT for PE. Repeat troponin for completeness although low suspicion this is cardiac Plan VTE Prophylaxis - deferred pending d-dimer workup as above Diet - regular Disposition - admit to med/surg Admission and Anticipated Discharge Date Admission Date: September 06, 2022 Results & Data Results & Data Vital Signs (Past 12 Hours) Vital Signs Temp Pulse Resp BP Pulse Ox O2 Del Method 09/07/22 22:23 36.5 C 109 H 14 127/85 99 Room Air 09/07/22 14:20 36.5 C 90 18 127/81 98 Room Air 09/07/22 13:04 37.0 C 101 H 18 144/82 H 98 Room Air PG Care Time/CCT Total # of Minutes Spent Total Time Spent with Patient: Total time spent is greater than 50% in coordination of care (as documented) at patient's floor/unit and/or counseling patient: Coding Level of Care Code 27331 SUB INP/OBS CARE 2/35MIN Diagnoses Alcohol withdrawal syndrome F10.939 Chest pain R07.9 Time Spent (min) 35
[2022-09-08] MEDS: THIAMINE HCL 100 MG TAB PO SCH (07:58)
--- NOTE | 2022-09-08 12:16 | Discharge Summary ---
Date of Service September 08, 2022 Admission HPI Per Admitting Provider Chino Sanches is a 36 year old male who presents to the ER due to concerns for alcohol withdrawal and chest pain. He reports multiple episodes of alcohol withdrawal previously most of which he stays home and just tries to get through it himself. However on this occasion he is also having chest pain with trouble breathing therefore came in to make sure his heart was ok. Last alcohol drink was yesterday afternoon. Drinking erratically (will go on heavy drinking episodes) but up to 2 bottles of vodka a day. Chest pain started around 8-9am. Improved with diazepam but still present. No worse on palpation, exertion or position. Worse on inspiration. He reports possibly having chest pain with other alcohol withdrawals but never to this magnitude. No history of alcohol withdrawal seizures. No hallucinations. Main symptoms of anxiety, tremors and mind racing. Positive review of systems - Diarrhea this morning. Not eaten anything in last 3 days because he has been drinking. Principal Diagnosis Alcohol in tox early withdrawal Discharge Data Allergies Allergy/AdvReac Type Severity Reaction Status Date / Time No Known Allergies Allergy Verified 09/06/22 13:27 Consultations 09/06/22 12:23 ED Decision to Admit Stat Ordered Studies 09/06/22 14:35 CT for pulmonary embolism PE [CT angio chest PE protocol] Stat Hospital Course (1) Alcohol withdrawal syndrome: Last drink yesterday afternoon PAWSS 3 points - average risk, although given prior hospitalization and multiple withdrawals managed at home suspect he will to well on PRN dosing alone. He also fluctuates his heavy drinking regularly giving a better prognosis. Lorazepam 1-3mg IV PRN per AWSS (2) Chest pain: Suspect related to alcohol withdrawal but given not present in this magnitude previously with significant tachycardia will get d-dimer and if raised will get CT for PE. Repeat troponin for completeness although low suspicion this is cardiac Plan VTE Prophylaxis - deferred pending d-dimer workup as above Diet - regular Disposition - admit to med/surg Total Time Total Time Spent Total Time Spent (In Minutes): 42 Discharge Plan Discharge Items Patient Disposition: Drug & Alcohol Rehab Reason For Visit: ALCOHOL WITHDRAWAL Discharge Diagnosis: Alcohol dependence Condition on Discharge: Fair Health Concerns: Recovery from substance abuse Goals: Restorative care Activity: Resume your previous activity Lifting: Gradually increase as tolerated Bathing: No limitations Weightbearing: Full weightbearing Non-emergency contact: Primary Care Provider Call non-emergency contact if: you have any medication questions Follow-up/Referrals: Bay Noriega MD, PhD [Primary Care Provider] - Diet: Regular Addtl Attending Provider Instructions: Maintain adequate food and water intakes including a multivitamin Pending Studies at Discharge: No Stand-Alone Forms: My [facility] [place] [employer] Skilled Items Patient informed of condition?: Yes DNR: No Discharge Level of Care: Other Communicable Disease: No Discharge Prognosis: Improving Lines: None Urinary Catheter: No Medications and DC Order Prescriptions: New thiamine HCl (vitamin B1) 100 mg Tablet 100 mg PO QAM Qty: 30 0RF Continued escitalopram oxalate 20 mg tablet 0 mg PO DAILY Rx Instructions: Per pt, he states the medication was interacting with his consumption of alcohol. So the last time he took it was 09/02/22 buspirone 10 mg tablet 0 mg PO TID Rx Instructions: Per pt, he states the medication was interacting with his consumption of alcohol. So the last time he took it was 09/02/22 Discharge Orders: Discharge Order (Routine); Ordered 09/08/22 Ordered By: Duke Rao/Other Patient Handouts: Alcoholism Resources, Alcoholism: Getting Help, Alcohol Withdrawal: What to Expect Admission Data Admit Date/Time: 09/06/22 12:44 Attending Provider: Duke Soni Admit Provider: Ervin Centeno Primary Care Provider: Bay Noriega Other Providers: Ervin Centeno Other Interventions: Discharge Summary Assessment (RN) Last Done: 09/08/22 12:22 Coding Level of Care Code 19419 INP/OBS DISCH >30 MIN Diagnoses Alcohol withdrawal syndrome F10.939 Chest pain R07.9 Time Spent (min) 42
[2022-09-10 08:37] LABS: 7-Aminoclonaz, Confirm NEGATIVE ng/mL (<25); Hydro-Alp Ur, GC/MS NEGATIVE ng/mL (<25); Hydroxyethylflurazepam, Conf NEGATIVE ng/mL (<50); Hydroxymidazolam Ur, GC/MS NEGATIVE ng/mL (<50); Hydroxytriazolam NEGATIVE ng/mL (<50); Lorazepam, Ur GC/MS NEGATIVE ng/mL (<50); Marijuana Quant, GCMS Urine 1521 ng/mL (<5); Nordiazepam, Confirm 334 ng/mL (<50); Oxazepam Ur, GC/MS NEGATIVE ng/mL (<50); Temazepam, Confirm 191 ng/mL (<50)
== END 2022-09-08 12:49 | disposition alcohol treatment (31) | DRG 897 ==
LOC: ED 09:27 → 3N 12:44 → SUATTDRO 12:44 → 3N 14:21